=== PATIENT | female | born 1945 | race Two or more races ===

== ENCOUNTER 2021-07-09 12:26 | Outpatient (REF) | payer MEDICARE, SELFPAY | END 2021-07-09 12:27 | disposition home or self-care (01) | LOC: HO.LAB 12:26 | PROVIDERS: PCP Internal Medicine; Visit Provider Internal Medicine | DX: Z20.822 Contact with and (suspected) exposure to COVID-19 (principal) | CPT/HCPCS: C9803; U0003; U0005 ==

== ENCOUNTER 2021-10-15 09:31 | Emergency (ER) | payer MEDICARE, SELFPAY ==
--- NOTE | ~2021-10-15 | CT_ITS ---
EXAMINATION: CT ABDOMEN AND PELVIS WITHOUT CONTRAST CLINICAL INFORMATION: Lower abdominal pain and rectal bleeding COMPARISON: None TECHNIQUE: Multidetector volumetric imaging was performed from the superior aspect of the liver through the pubic symphysis. Sagittal and coronal reformatted images were obtained on the technologist's workstation. This CT examination was performed using dose optimization techniques as appropriate, variously including the following: *Automated exposure control *Adjustment of mA and/or kV according to patient size (this includes techniques or standardized protocols for targeted exams where dose is matched to indication/reason for exam; i.e. extremities or head) *Use of iterative reconstruction technique DLP: 653 mGy-cm FINDINGS: LUNG BASES: The visualized lung bases are unremarkable. LIVER, GALLBLADDER, AND BILIARY TREE: The liver is normal in size, shape, and attenuation. No focal hepatic lesion or biliary ductal dilatation is present. The gallbladder is unremarkable with no evidence of radiopaque gallstones, gallbladder wall thickening, or obvious pericholecystic inflammatory changes. PANCREAS: Unremarkable. SPLEEN: Unremarkable. ADRENAL GLANDS: Unremarkable. KIDNEYS AND URETERS: The kidneys are normal in size, shape, and attenuation. No hydronephrosis, hydroureter, or calculi seen. No perinephric stranding. There is a 2.9 x 2.6 x 3.1 cm cyst midpole left kidney. No additional cyst seen. BLADDER: Unremarkable. GASTROINTESTINAL TRACT: There are scattered diverticula seen throughout the colon most prominent in the sigmoid colon with mild mural thickening and minimal fat stranding. The small bowel loops are normal caliber. Appendix is normal caliber.. ABDOMINAL WALL: There is a small umbilical hernia containing fat.. LYMPH NODES: Normal bilateral calf with 2 or lytic VASCULAR: Unremarkable. PELVIC VISCERA: Diffuse sigmoid diverticulosis with mild mural thickening with minimal fat stranding. No proximal bowel obstruction, abscess or free air. OSSEOUS STRUCTURES: There is vacuum disc phenomena at L3-L4 disc level. No lytic or sclerotic process seen. CT/CT abdomen pelvis wo con IMPRESSION: Sigmoid diverticulosis with likely early summer sigmoid colitis. No bowel obstruction, free air or collection seen. Fleischner guidelines were followed.
[2021-10-15 09:49] VITALS: BP 156/75; PULSE 88; RESP 16; TEMP 36.6; O2SAT 97; BMI 29.9
[2021-10-15 12:32] VITALS: BP 156/76; PULSE 74; RESP 14; TEMP 37.1; O2SAT 95
--- NOTE | 2021-10-15 13:15 | ED.GENADULT ---
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 Patient had a bowel movement this morning which loose stool with streaks of bright red blood, patient complained of some crampy pain in the lower abdomen which resolved now, patient otherwise has no other complaints, no fever, no chills, patient is not taking a blood thinner. Related Data Previous Rx's Medication Instructions Recorded ciprofloxacin HCl 500 mg tablet 500 mg PO BID #14 tab 10/15/21 (Cipro) metronidazole 500 mg tablet 500 mg PO BID 14 Days #28 tab 10/15/21 Allergies Allergy/AdvReac Type Severity Reaction Status Date / Time No Known Allergies Allergy Mild NONE Unverified 06/29/20 15:16 Review of Systems Review of Systems: All other systems are reviewed and are negative Constitutional: Reports as per HPI and Reports no additional constitutional complaints Eyes: Reports as per HPI and Reports no additional eye complaints Reports system reviewed and no additional complaints, except as documented Cardiovascular: Reports as per HPI and Reports no additional cardiovascular complaints Respiratory: Reports as per HPI and Reports no additional respiratory complaints Gastrointestinal: Reports as per HPI and Reports no additional gastrointestinal complaints Genitourinary: Reports no additional female genitourinary complaints Musculoskeletal: Reports no additional musculoskeletal complaints Skin/Breast: Reports system reviewed and no additional complaints, except as docu Psychiatric: Reports no additional psychiatric complaints Endocrine: Reports no additional endocrine complaints Hematologic/Lymphatic: Reports no additional hematologic/lymphatic complaints Allergic/Immunologic: Reports no additional allergic/immunologic complaints Reports system reviewed and no additional complaints, except as documented and Reports Abnormal speech present [facility] Past Medical History Medical History Hypertension Social History Social History Advance Directives: No Advance Directives Information Provided: No Physical Exam Vital Signs: Vital Signs: Last Vital Signs Temp 98.9 F 10/15/21 13:23 Pulse 75 10/15/21 13:23 Resp 16 10/15/21 13:23 BP 142/73 H 10/15/21 13:23 Pulse Ox 94 10/15/21 13:23 BMI result Body Mass Index 29.9 Vital signs have been reviewed as appeared to be correct. Blood pressure normal. Heart rate normal. Respiration rate normal. Temperature normal. Oxygen saturation normal. Appearance: Alert. Oriented X3. No acute distress. Head: Normal external exam. Normocephalic. Atraumatic. No Dewitt signs noted. No raccoon eyes noted Eyes: PERRLA. EOMI. Conjunctiva and sclera normal. Eyelids normal. ENT: TM's Normal. Pharynx normal. Uvula midline. Moist mucous membranes. No trismus noted. No drooling noted. No muffled voice noted. Neck: Normal inspection. Neck supple. FROM. No adenopathy. Thyroid Normal. No meningeal signs. No neck mass noted. CVS: Normal heart rate and rhythm. Heart sound normal. No murmurs noted. Pulses normal throughout. Respiratory: No respiratory distress. Painless inspiration. Breath sounds normal. No wheezes/rales/rhonchi noted. Chest nontender. No accessory muscle usage noted or decreased air movement noted. Abdomen: Soft and nontender. Bowel sounds normal in all 4 quadrants. No distention noted. No organomegaly noted. No visible injury noted. Back: No CVA tenderness. Full range of motion noted. Skin: Skin warm and dry. Normal skin color. Normal skin turgor. No rashes/lesions/lacerations noted. Extremities: No lower extremity edema. Extremities exhibit normal range of motion. Extremities nontender. Neuro: Oriented X 3. Cranial nerve exam: II-XII are grossly intact No motor deficit. No sensory deficit. Reflexes normal. Course Course Course Narrative: Assessment and plan. 76-year-old female came in for evaluation of 1 time of bloody stool, rectal exam in the emergency department showed no blood in the stool, stable H&H, stable vital signs. CT is questioning early sign of sigmoid colitis. As discussed with the patient will start the patient on Cipro/Flagyl, refer the patient to radial saw operator. Medical Decision Making Medical Records Medical records reviewed: Yes I reviewed the patient's medical records. Lab Data Lab results reviewed: Yes I reviewed the patient's lab results. Result diagrams: 10/15/21 13:16 10/15/21 13:16 Labs: Lab Results 10/15/21 10/15/21 10/15/21 Range/Units 13:16 13:16 13:16 WBC 8.5 (4.8-10.8) X10*3/uL RBC 3.62 L (4.20-5.50) X10*6/uL Hgb 11.5 L (12.0-16.0) g/dl Hct 34.7 L (37.0-47.0) % MCV 95.9 (80.0-98.0) fL MCH 31.8 (27.0-33.0) pg MCHC 33.1 (31.0-35.0) g/dl RDW 13.2 (11.0-16.0) % Plt Count 302 (160-400) X10*3/uL MPV 9.3 L (9.4-12.3) fL Immature Gran % (Auto) 0.1 (0.0-0.4) % Neut % (Auto) 55.8 (45-73) % Lymph % (Auto) 32.0 (20-40) % Williamson % (Auto) 6.9 (2-11) % Eos % (Auto) 4.7 H (0-4) % Baso % (Auto) 0.5 (0-2) % Lymph # (Auto) 2.7 (1.2-4.9) X10*3/uL Williamson # (Auto) 0.6 (0.1-1.2) X10*3/uL Eos # (Auto) 0.4 (0.0-0.4) X10*3/uL Baso # (Auto) 0.0 (0.0-0.2) X10*3/uL Abs Immat Gran (auto) 0.01 (0.00-0.03) X10*3/uL Absolute Neuts (auto) 4.7 (2.0-8.3) x10*3/uL Absolute Nucleated RBC 0.000 (0.0-0.012) X10*3/uL Nucleated RBC % (auto) 0.0 (0.0-0.2) /100WBC Sodium 142 (135-145) mmol/L Potassium 3.8 (3.3-5.1) mmol/L Chloride 105 (96-108) mmol/L Carbon Dioxide 31 H (22-29) mmol/L Anion Gap 10 L (12-20) BUN 8 L (9-16) mg/dL Creatinine 0.85 (0.5-1.4) mg/dL Estim Creat Clear Calc 53.1 Estimated GFR > 60 Random Glucose 104 (60-115) mg/dL Calcium 9.3 (8.4-10.2) mg/dL Total Bilirubin 0.6 (0.0-1.0) mg/dL Direct Bilirubin 0.2 (0.0-0.5) mg/dL AST 11 (5-31) U/L ALT 12 (0-31) U/L Alkaline Phosphatase 70 (39-117) U/L Troponin I High Sens < 3.5 (<3.5-17.0) ng/L Total Protein 6.9 (6.5-8.0) g/dL Albumin 4.0 (3.5-5.0) g/dL Lipase 7 L (8-78) U/L Urine Color Urine Appearance Urine pH (5.0-8.0) Ur Specific [place] (1.005-1.025) Urine Protein (NEG-TRACE) MG/DL Urine Glucose (UA) (NEG) MG/DL Urine Ketones (NEG) MG/DL Urine Blood (NEG) Urine Nitrite (NEG) Ur Leukocyte Esterase (NEG) Urine RBC (0) /HPF Urine WBC (0-4) /HPF Ur Squamous Epith Cells /LPF Urine Bacteria /LPF Urine Mucus /LPF Stool Occult Blood (NEGATIVE) 10/15/21 10/15/21 Range/Units 13:17 13:19 WBC (4.8-10.8) X10*3/uL RBC (4.20-5.50) X10*6/uL Hgb (12.0-16.0) g/dl Hct (37.0-47.0) % MCV (80.0-98.0) fL MCH (27.0-33.0) pg MCHC (31.0-35.0) g/dl RDW (11.0-16.0) % Plt Count (160-400) X10*3/uL MPV (9.4-12.3) fL Immature Gran % (Auto) (0.0-0.4) % Neut % (Auto) (45-73) % Lymph % (Auto) (20-40) % Williamson % (Auto) (2-11) % Eos % (Auto) (0-4) % Baso % (Auto) (0-2) % Lymph # (Auto) (1.2-4.9) X10*3/uL Williamson # (Auto) (0.1-1.2) X10*3/uL Eos # (Auto) (0.0-0.4) X10*3/uL Baso # (Auto) (0.0-0.2) X10*3/uL Abs Immat Gran (auto) (0.00-0.03) X10*3/uL Absolute Neuts (auto) (2.0-8.3) x10*3/uL Absolute Nucleated RBC (0.0-0.012) X10*3/uL Nucleated RBC % (auto) (0.0-0.2) /100WBC Sodium (135-145) mmol/L Potassium (3.3-5.1) mmol/L Chloride (96-108) mmol/L Carbon Dioxide (22-29) mmol/L Anion Gap (12-20) BUN (9-16) mg/dL Creatinine (0.5-1.4) mg/dL Estim Creat Clear Calc Estimated GFR Random Glucose (60-115) mg/dL Calcium (8.4-10.2) mg/dL Total Bilirubin (0.0-1.0) mg/dL Direct Bilirubin (0.0-0.5) mg/dL AST (5-31) U/L ALT (0-31) U/L Alkaline Phosphatase (39-117) U/L Troponin I High Sens (<3.5-17.0) ng/L Total Protein (6.5-8.0) g/dL Albumin (3.5-5.0) g/dL Lipase (8-78) U/L Urine Color YELLOW Urine Appearance CLEAR Urine pH 5.5 (5.0-8.0) Ur Specific [place] 1.020 (1.005-1.025) Urine Protein NEG (NEG-TRACE) MG/DL Urine Glucose (UA) NEG (NEG) MG/DL Urine Ketones 5 (NEG) MG/DL Urine Blood TRACE (NEG) Urine Nitrite NEG (NEG) Ur Leukocyte Esterase NEG (NEG) Urine RBC 1-4 (0) /HPF Urine WBC 0-2 (0-4) /HPF Ur Squamous Epith Cells 1+ /LPF Urine Bacteria TRACE /LPF Urine Mucus 1+ /LPF Stool Occult Blood NEGATIVE (NEGATIVE) Imaging Data CT scan - abdomen: Attestation: I personally reviewed and interpreted this imaging study as follows: Radiologist's impression: Sigmoid diverticulosis with likely early summer sigmoid colitis. No bowel obstruction, free air or collection seen.? ? Discharge Plan Discharge Clinical Impression: Colitis Patient Disposition: Home, Self-Care Instructions: Colitis (ED) Prescriptions: New ciprofloxacin HCl [Cipro] 500 mg tablet 500 mg PO BID Qty: 14 RF: 0 metronidazole 500 mg tablet 500 mg PO BID 14 Days Qty: 28 RF: 0 Referrals: Kalin Mahoney MD [Primary Care Provider] - 2 days German Lilly MD [Physician] - 2 days
[2021-10-15 13:23] VITALS: BP 142/73; PULSE 75; RESP 16; TEMP 37.2; O2SAT 94
[2021-10-15 13:23] LABS: MANUAL DIFF FLAG NO
[2021-10-15 13:28] LABS: Basophils Percent Auto 0.5 % (0-2); Eosinophils Absolute Auto 0.4 X10*3/uL (0.0-0.4); Eosinophils Percent Auto 4.7 % (0-4); Hematocrit 34.7 % (37.0-47.0); Hemoglobin 11.5 g/dl (12.0-16.0); Imm Gran Abs Auto 0.01 X10*3/uL (0.00-0.03); Imm Gran Pct Auto 0.1 % (0.0-0.4); Lymphocytes Absolute Auto 2.7 X10*3/uL (1.2-4.9); Mean Corpuscular HGB Conc 33.1 g/dl (31.0-35.0); Mean Corpuscular Hemoglobin 31.8 pg (27.0-33.0); Mean Corpuscular Volume 95.9 fL (80.0-98.0); Mean Platelet Volume 9.3 fL (9.4-12.3); Monocytes Absolute Auto 0.6 X10*3/uL (0.1-1.2); Monocytes Percent Auto 6.9 % (2-11); Neutrophils Absolute Auto 4.7 x10*3/uL (2.0-8.3); Neutrophils Percent Auto 55.8 % (45-73); Platelet Count 302 X10*3/uL (160-400); Red Blood Count 3.62 X10*6/uL (4.20-5.50); Red Cell Distribution Width 13.2 % (11.0-16.0); White Blood Count 8.5 X10*3/uL (4.8-10.8)
[2021-10-15 13:29] LABS: OBS Int Ctl Valid YES; OBS1 NEGATIVE (NEGATIVE)
[2021-10-15 13:29] LABS: Appearance Urine CLEAR; Color Urine YELLOW; Glucose Urine UA NEG (NEG); Leukocyte Esterase Urine NEG (NEG); Nitrite Urine NEG (NEG); PH 5.5 (5.0-8.0); UACC Culture Trigger NO; Urine Blood TRACE (NEG); Urine Ketones 5 MG/DL (NEG); Urine Protein NEG (NEG-TRACE)
[2021-10-15 13:39] LABS: Anion Gap 10 (12-20); Blood Urea Nitrogen 8 mg/dL (9-16); Carbon Dioxide 31 mmol/L (22-29); Chloride 105 mmol/L (96-108); Creatinine Clr Calc Pharmacy 53.1; Estimated Glomerular Filt Rate > 60; Potassium 3.8 mmol/L (3.3-5.1); Sodium 142 mmol/L (135-145)
[2021-10-15 13:40] LABS: Alanine Aminotransferase 12 U/L (0-31); Alkaline Phosphatase 70 U/L (39-117); Aspartate Amino Transferase 11 U/L (5-31); Bilirubin Direct 0.2 mg/dL (0.0-0.5); Bilirubin Total 0.6 mg/dL (0.0-1.0); Calcium 9.3 mg/dL (8.4-10.2); Glucose Random 104 mg/dL (60-115); Lipase 7 U/L (8-78); Total Protein 6.9 g/dL (6.5-8.0)
[2021-10-15 13:43] LABS: Bacteria Urine TRACE /LPF; Mucus Urine 1+ /LPF; Squamous Epithelial Cell Urine 1+ /LPF; WBC Urine 0-2 /HPF (0-4)
[2021-10-15 13:45] LABS: Troponin-I High Sensitivity < 3.5 ng/L (<3.5-17.0)
== END 2021-10-15 14:30 | disposition home or self-care (01) ==
PROVIDERS: Emergency Provider Emergency Medicine; PCP Internal Medicine
DX: K52.89 Other specified noninfective gastroenteritis and colitis (principal); K57.30 Diverticulosis of large intestine without perforation or abscess without bleeding
CPT/HCPCS: 36415; 74176; 80048; 80076; 81001; 82272; 83690; 84484; 85025; 99284

== ENCOUNTER 2022-05-30 14:10 | Emergency (ER) | payer MEDICARE, SELFPAY ==
--- NOTE | ~2022-05-30 | XR_ITS ---
EXAMINATION: XR CHEST CLINICAL INFORMATION: Cough COMPARISON: 09/11/2016 TECHNIQUE: Frontal view of the chest was obtained. FINDINGS: No evidence for an infiltrate. Lung granados are grossly clear. There is no failure or effusion. Tortuous versus ectatic arch and descending aorta. The cardiac silhouette is comparable to previous. XR/XR chest 1V IMPRESSION: No acute finding.
[2022-05-30 15:23] VITALS: BP 153/76; PULSE 63; RESP 18; TEMP 36.3; O2SAT 96; BMI 29.2
[2022-05-30 15:52] LABS: COVID-19 Test Positive (Negative); IDNOW Serial# 16C4AD1C
== END 2022-05-30 17:41 | disposition left against medical advice (07) ==
PROVIDERS: Emergency Provider Emergency Medicine
DX: U07.1 COVID-19 (principal)
CPT/HCPCS: 71045; 87635; 99281; 99283

== ENCOUNTER 2023-02-21 16:10 | Emergency (ER) | payer OTHER, SELFPAY ==
[2023-02-21 16:22] VITALS: BP 163/83; PULSE 77; RESP 18; TEMP 36.5; O2SAT 96; BMI 28.5
--- NOTE | 2023-02-21 16:22 | ED.EYEPROB ---
HPI - Eye Problem General Chief complaint: Eye Problems <SAMY Delong - Last Filed: 02/21/23 16:28> Stated complaint: right eye injury <SAMY Delong - Last Filed: 02/21/23 16:28> Time Seen by Provider: 02/21/23 18:53 <SAMY Delong - Last Filed: 02/21/23 16:28> Source: patient <Shamir Romeo MD - Last Filed: 02/21/23 19:38> Mode of arrival: ambulatory <Shamir Romeo MD - Last Filed: 02/21/23 19:38> Limitations: no limitations <Shamir Romeo MD - Last Filed: 02/21/23 19:38> History of Present Illness HPI Narrative: Patient was coughing for last 2 days today noticed redness of the right eye after coughing episodes cough is mostly dry with occasional mucopurulent expectoration no nasal congestion no fever no chills <Shamir Romeo MD - Last Filed: 02/21/23 19:38> Related Data Home medications: Previous Rx's Medication Instructions Recorded benzonatate 200 mg capsule 200 mg PO TID PRN cough #20 caps 02/21/23 <SAMY Delong - Last Filed: 02/21/23 16:28> Allergies/adverse reactions: Allergies Allergy/AdvReac Type Severity Reaction Status Date / Time No Known Allergies Allergy Verified 02/21/23 16:26 <SAMY Delong - Last Filed: 02/21/23 16:28> Review of Systems Review of Systems: Yes all other systems are reviewed and are negative <Shamir Romeo MD - Last Filed: 02/21/23 19:38> [facility] Social History Social History: Social History Advance Directives: No Advance Directives Information Provided: No <SAMY Delong - Last Filed: 02/21/23 16:28> Physical Exam Vital Signs: Vital Signs: Last Vital Signs Temp 97.7 F 02/21/23 16:22 Pulse 60 02/21/23 18:35 Resp 14 02/21/23 18:35 BP 150/68 H 02/21/23 18:35 Pulse Ox 97 02/21/23 18:35 O2 Del Method Room Air 02/21/23 18:35 BMI result Body Mass Index 28.5 <SAMY Delong - Last Filed: 02/21/23 16:28> Vital Signs: Last Vital Signs Temp 97.7 F 02/21/23 16:22 Pulse 60 02/21/23 18:35 Resp 14 02/21/23 18:35 BP 150/68 H 02/21/23 18:35 Pulse Ox 97 02/21/23 18:35 O2 Del Method Room Air 02/21/23 18:35 BMI result Body Mass Index 28.5 <Shamir Romeo MD - Last Filed: 02/21/23 19:38> Const: General: comfortable and no acute distress <Shamir Romeo MD - Last Filed: 02/21/23 19:38> HEENT: Face and sinus: Yes normal facial exam <Shamir Romeo MD - Last Filed: 02/21/23 19:38> Mouth: Normal oral and palatal mucosa present <Shamir Romeo MD - Last Filed: 02/21/23 19:38> Throat: Yes posterior oropharynx normal <Shamir Romeo MD - Last Filed: 02/21/23 19:38> Eyes: Conjunctivae: other <Shamir Romeo MD - Last Filed: 02/21/23 19:38> Sclerae: scleral abnormal (Right subconjunctival hemorrhage) <Shamir Romeo MD - Last Filed: 02/21/23 19:38> Corneas: corneas normal <Shamir Romeo MD - Last Filed: 02/21/23 19:38> Pupils: Equal, round and reactive pupils present <Shamir Romeo MD - Last Filed: 02/21/23 19:38> EOM: EOMs intact bilaterally <Shamir Romeo MD - Last Filed: 02/21/23 19:38> Eyes/upper lids images: 1. Subclinical hemorrhage right eye <SAMY Delong - Last Filed: 02/21/23 16:28> Eyes/upper lids images: 1. Subclinical hemorrhage right eye <Shamir Romeo MD - Last Filed: 02/21/23 19:38> Resp: Effort & Inspection: normal respiratory effort <Shamir Romeo MD - Last Filed: 02/21/23 19:38> Auscultation: clear to auscultation bilaterally <Shamir Romeo MD - Last Filed: 02/21/23 19:38> Cardio: Palpation: normal PMI <Shamir Romeo MD - Last Filed: 02/21/23 19:38> Rate: regular rate <Shamir Romeo MD - Last Filed: 02/21/23 19:38> Neuro: Cranial nerves: Yes Equal, round and reactive pupils present <Shamir Romeo MD - Last Filed: 02/21/23 19:38> Course Course Course Narrative: RME: 77-year-old female w/PMHx cataracts, HTN, HLD, c/o left eye erythema and pain since this morning with slight clear drainage. Also reports foreign body sensation/discomfort. patient admits to wearing glasses, denies wearing contacts. Denies injury/trauma or fall, vision change/loss, nausea/vomiting + right eye with subconjunctival hemorrhage noted. No evidence of globe rupture. EOMI intact without entrapment. Visual acuity, tetracaine, fluorescein ordered Full HPI, ROS and PE to be performed by primary ED provider. <SAMY Delong - Last Filed: 02/21/23 16:28> Discharge Plan Discharge Clinical Impression: Subconjunctival hemorrhage <SAMY Delong Last Filed: 02/21/23 16:28> Patient Disposition: Home, Self-Care <SAMY Delong Last Filed: 02/21/23 16:28> Instructions: Subconjunctival Hemorrhage (ED) <SAMY Delong Last Filed: 02/21/23 16:28> Additional Instructions: Cough drops as advised for cough subconjunctival hemorrhage on the right side will dissolve of its own in 10-14 days <SAMY Delong Last Filed: 02/21/23 16:28> Prescriptions: New benzonatate 200 mg capsule 200 mg PO TID PRN (Reason: cough) Qty: 20 0RF <SAMY Delong - Last Filed: 02/21/23 16:28>
[2023-02-21 18:35] VITALS: BP 150/68; PULSE 60; RESP 14; O2SAT 97
[2023-02-21] MEDS: Benzonatate 100 MG CAPSULE 200 MG PO (19:36)
[2023-02-21] MEDS: Tetracaine HCl/PF 0.5% Oph Sol 4 ML DROPS 1 DROP EYE-RIGHT (19:37)
[2023-02-21] MEDS: Fluorescein Sodium STRIP 1 STRIP EYE-RIGHT (19:37)
--- NOTE | 2023-02-21 19:38 | PC.NURSE ---
This RN medicated and discharge pt for RN Tacho, Reviewed discharge instructions with pt, pt verbalized understanding.
== END 2023-02-21 19:40 | disposition home or self-care (01) ==
PROVIDERS: Emergency Provider Internal Medicine; PCP Family Medicine
DX: H11.31 Conjunctival hemorrhage, right eye (principal)
CPT/HCPCS: 99283

== ENCOUNTER 2024-01-02 13:16 | Emergency (ER) | payer MEDICARE, SELFPAY ==
--- NOTE | ~2024-01-02 | US_ITS ---
EXAMINATION: US ABDOMEN LIMITED CLINICAL INFORMATION: Right upper quadrant pain. COMPARISON: None available. TECHNIQUE: Real-time imaging of the right upper quadrant abdominal viscera. FINDINGS: PANCREAS: The visualized portion of the pancreas head and body are normal, portion of the pancreatic body and tail, not visualized are obscured by bowel gas. LIVER: Normal. The liver is normal in size. The liver contour is normal. Parenchymal echogenicity is normal. No focal hepatic lesion. There is no intrahepatic biliary duct dilatation seen. GALLBLADDER: There are gallstones. Tenderness also reported pressing on the gallbladder, no other signs to suggest cholecystitis, no gallbladder wall thickening or pericholecystic fluid collection. COMMON BILE DUCT: Normal in caliber measuring 0.4 cm in diameter. RIGHT KIDNEY: Normal. No hydronephrosis. No renal calculi or focal parenchymal lesions. The kidney measures 9.3 cm in maximum dimension. FREE FLUID: None. US/US abdomen limited IMPRESSION: There are gallstones, tenderness reported pressing on the gallbladder by the technologist, there are no other signs to suggest acute cholecystitis, specifically no gallbladder wall thickening or pericholecystic fluid also the common bile duct is normal in diameter 4 mm. Please correlate clinically. If there is high index of suspicion for acute cholecystitis, would recommend correlation with follow-up HIDA scan and/or surgical evaluation.
[2024-01-02 14:12] VITALS: BP 130/88; PULSE 62; RESP 14; TEMP 36.4; O2SAT 99; BMI 28.3
--- NOTE | 2024-01-02 14:18 | ED_ITS ---
HPI - General Adult General Chief complaint: General Medical Stated complaint: ? Abscess on Head Stomach Pain Time Seen by Provider: 01/02/24 15:17 Source: patient and RN notes reviewed Mode of arrival: ambulatory Limitations: no limitations History of Present Illness HPI narrative: This is a 13-[id number]-female, with a past medical history of hypertension, presenting to the emergency department with a complaint of burning sensation in his esophagus for the last year as well as abscess on the back of her head.complaints of burning esophageal sensation for the last year. She states that she currently is not having the symptoms. Denies any chest pain or shortness of breath. She states that she finds her symptoms worsening after eating greasy food and at night. She is previously on Prilosec which she has not taken in quite some time. She is also reporting a lump on the back of her head which has been present for the last 2 days. No recent trauma or injury. She also is endorsing burning sensation in her bilateral eyes for the last month. Denies any vision changes. She states that she is traveling to [place] and was hoping to have some of her medical problems assess prior to her departure. She denies any fevers, chills, headaches, dizziness, chest pain, shortness of breath, abdominal pain, nausea, vomiting or diarrhea. No other complaints or concerns at this time. MD complaint: GERD, bilateral eye itchiness, head lump Onset (ago): month(s) Radiation: non-radiation Quality: burning Relieving factors: none Exacerbating factors: none Associated symptoms: denies other symptoms Treatments prior to arrival: none Related Data Previous Rx's Medication Instructions Recorded ciprofloxacin HCl 500 mg tablet 500 mg PO BID #14 tabs 10/15/21 (Cipro) metronidazole 500 mg tablet 500 mg PO BID 14 days #28 tabs 10/15/21 aluminum-mag hydroxide-simethicone 5 ml PO 5XD PRN dyspepsia #200 mL 01/02/24 200 mg-200 mg-20 mg/5 mL oral susp (Maalox Advanced) omeprazole magnesium 20 mg 20 mg PO DAILY #30 tabs 01/02/24 tablet,delayed release (Prilosec OTC) Allergies Allergy/AdvReac Type Severity Reaction Status Date / Time No Known Allergies Allergy Mild NONE Verified 05/30/22 15:23 Review of Systems 2 Review of Systems: Yes all other systems are reviewed and are negative Constitutional: Constitutional: Reports as per [facility] Past Medical History Medical History Hypertension Social History Social History Alcohol intake: never Patient Tobacco Use Status: Never used Tobacco Physical Exam ED Vital Signs: Vital Signs - 24 hr 01/02/24 14:12 Temperature 97.6 F Pulse Rate 62 Respiratory Rate 14 Blood Pressure 130/88 Pulse Oximetry 99 Oxygen Delivery Method Room Air BMI result Body Mass Index 28.3 Const General: cooperative, comfortable and no acute distress Orientation/consciousness: patient oriented x3 Limitations: no limitations HENMT Other: Right occiput with tenderness palpation, no palpable mass, deformity, or erythema. No drainage. No overlying skin changes. Head: Yes normal to inspection, Yes normocephalic and Yes atraumatic Ears: hearing grossly normal bilaterally General nose exam: Normal external nose present Face and sinus: Yes normal facial exam Mouth: Normal oral and palatal mucosa present, oropharynx normal and moist mucous membranes Throat: Yes posterior oropharynx normal Eyes Other: Bilateral conjunctiva is noninjected. Pupils equal and reactive. No periorbital swelling, or erythema noted. No exophthalmos General: appearance normal, both eyes and all related structures Eyelids: Yes eyelids normal Conjunctivae: conjunctivae normal Sclerae: sclerae normal Pupils: Equal, round and reactive pupils present EOM: EOMs intact bilaterally Neck Neck: Yes normal visual inspection, Yes full ROM and Yes no lymphadenopathy Lymphatic: no lymphadenopathy noted Chest Chest palpation & inspection: normal inspection of the chest Resp Effort & Inspection: normal respiratory effort and able to speak in complete sentences Auscultation: clear to auscultation bilaterally, no crackles, no rales, no rhonchi and no wheezes Cardio Rate: regular rate Rhythm: regular rhythm Heart sounds: S1 normal heart sound present and S2 normal heart sound present GI Other: Slight tenderness palpation in the right upper quadrant. Inspection: Yes normal to inspection Skin General skin exam: no rashes or lesions noted Trauma: no lacerations or abrasions Wounds: no wounds Neuro General: patient oriented x3 and moves all extremities Cranial nerves: Yes Equal, round and reactive pupils present Extrem General: Yes normal to inspection Right upper extremity: normal to inspection Left upper extremity: normal to inspection Right lower extremity: normal to inspection Left lower extremity: normal to inspection Course Reevaluation(s) Reevaluation #1: Ultrasound returns revealing gallstones, as well as tenderness while pressing on gallbladder by the technologist, there are no other signs to suggest acute cholecystitis. No gallbladder wall thickening or pericholecystic fluid. Common bile duct is normal in diameter 4 mm. Discussed findings with pt, given surgical referral. At this time she does not have evidence of cholecystitis therefore urgent HIDA scan not warrated at this time. Pt discharged on omeprazole, maalox and given return precautions, She understands and agrees with plan. Time: 18:08 Medical Decision Making Medical Decision Making MDM Narrative: This is a 78-year-old female presenting to the emergency department with complaints of burning esophageal sensation for the last year. She states that she currently is not having the symptoms. Denies any chest pain or shortness of breath. She states that she finds her symptoms worsening after eating greasy food and at night. She is previously on Prilosec which she has not taken in quite some time. She is also reporting a lump on the back of her head which has been present for the last 2 days. No recent trauma or injury. She states that she is traveling to [place] and wanted some of her symptoms to be evaluated prior to her departure. She is currently asymptomatic. Plan: Labs, ultrasound right upper quadrant. Differential Diagnosis Differential Diagnoses: The differential diagnosis associated with the presentation includes Gastritis, GERD, cholelithiasis, cholecystitis, lymphangitis, cellulitis Admission/Observation Consideration of admission/observation: Escalation of care including admission/observation considered Escalation of care including admission/observation considered however given workup today not warranted at this time. Lab Data MDM Lab Attestation statement: I reviewed the patient's lab results. No leukocytosis, no evidence of MARLIN,LFTs wnl 01/02/24 16:00 01/02/24 16:00 Labs: Lab Results 01/02/24 Range/Units 16:00 WBC 6.1 (4.8-10.8) X10*3/uL RBC 3.76 L (4.20-5.50) X10*6/uL Hgb 11.8 L (12.0-16.0) g/dl Hct 35.5 L (37.0-47.0) % MCV 94.4 (80.0-98.0) fL MCH 31.4 (27.0-33.0) pg MCHC 33.2 (31.0-35.0) g/dl RDW 13.2 (11.0-16.0) % Plt Count 292 (160-400) X10*3/uL MPV 9.5 (9.4-12.3) fL Immature Gran % (Auto) 0.2 (0.0-0.4) % Neut % (Auto) 45.1 (45-73) % Lymph % (Auto) 40.4 H (20-40) % [place] % (Auto) 6.8 (2-11) % Eos % (Auto) 6.7 H (0-4) % Baso % (Auto) 0.8 (0-2) % Lymph # (Auto) 2.5 (1.2-4.9) X10*3/uL [place] # (Auto) 0.4 (0.1-1.2) X10*3/uL Eos # (Auto) 0.4 (0.0-0.4) X10*3/uL Baso # (Auto) 0.1 (0.0-0.2) X10*3/uL Abs Immat Gran (auto) 0.01 (0.00-0.03) X10*3/uL Absolute Neuts (auto) 2.8 (2.0-8.3) x10*3/uL Absolute Nucleated RBC 0.000 (0.0-0.012) X10*3/uL Nucleated RBC % (auto) 0.0 (0.0-0.2) /100WBC Sodium 139 (135-145) mmol/L Potassium 4.1 (3.3-5.1) mmol/L Chloride 105 (96-108) mmol/L Carbon Dioxide 28 (22-29) mmol/L Anion Gap 10 L (12-20) BUN 9 (9-16) mg/dL Creatinine 0.85 (0.5-1.4) mg/dL Estim Creat Clear Calc 52.0 Estimated GFR > 60 Random Glucose 100 (60-115) mg/dL Calcium 9.2 (8.4-10.2) mg/dL Total Bilirubin 0.5 (0.0-1.0) mg/dL AST 14 (5-31) U/L ALT 15 (0-31) U/L Alkaline Phosphatase 67 (39-117) U/L Total Protein 7.2 (6.5-8.0) g/dL Albumin 4.1 (3.5-5.0) g/dL Lipase 15 (8-78) U/L Radiology Impression Discussion of test interpretation with radiology: I have reviewed the radiologist's reading. Radiologist Impression: [address] [address] Ultrasound Report Signed Patient: Brianna Pathak MR#: [id number] : 1945 Acct:[id number] Age/Sex: 78 / F ADM Date: 01/02/24 Loc: .ED Attending Dr: Ordering Physician: Mirta Martinez Date of Service: 01/02/24 Procedure(s): US abdomen limited Accession Number(s): [id number] cc: Mirta Martinez; Physician,Unknown ~ EXAMINATION: US ABDOMEN LIMITED CLINICAL INFORMATION: Right upper quadrant pain. COMPARISON: None available. TECHNIQUE: Real-time imaging of the right upper quadrant abdominal viscera. FINDINGS: PANCREAS: The visualized portion of the pancreas head and body are normal, portion of the pancreatic body and tail, not visualized are obscured by bowel gas. LIVER: Normal. The liver is normal in size. The liver contour is normal. Parenchymal echogenicity is normal. No focal hepatic lesion. There is no intrahepatic biliary duct dilatation seen. GALLBLADDER: There are gallstones. Tenderness also reported pressing on the gallbladder, no other signs to suggest cholecystitis, no gallbladder wall thickening or pericholecystic fluid collection. COMMON BILE DUCT: Normal in caliber measuring 0.4 cm in diameter. RIGHT KIDNEY: Normal. No hydronephrosis. No renal calculi or focal parenchymal lesions. The kidney measures 9.3 cm in maximum dimension. FREE FLUID: None. US/US abdomen limited IMPRESSION: There are gallstones, tenderness reported pressing on the gallbladder by the technologist, there are no other signs to suggest acute cholecystitis, specifically no gallbladder wall thickening or pericholecystic fluid also the common bile duct is normal in diameter 4 mm. Please correlate clinically. If there is high index of suspicion for acute cholecystitis, would recommend correlation with follow-up HIDA scan and/or surgical evaluation. External Record Review External record reviewed: Inpatient record, Office record, Outpatient record, Prior outpatient labs, Prior outpatient radiology, Primary care record and Outside ED record Discharge Plan Discharge Clinical Impression: Cholelithiasis, Chronic GERD, Seasonal allergies Patient Disposition: Home, Self-Care Instructions: Gallstones (ED), Low Fat Diet (ED), Gastroesophageal Reflux Disease (ED), Indigestion (ED) Additional Instructions: You were seen in the emergency department due to multiple complaints. Your ultrasound revealed gallstones. There has no evidence of infection at this time. Stick to a low-fat diet, avoid spicy or fried foods. Avoid red meats. If you develop severe right-sided abdominal pain, please seek emergent care. Also recommending he follow-up with a surgeon outpatient for further recommendations as well as removal of your gallbladder if needed. You also have acid reflux, please take prescribed omeprazole as directed. Take this before breakfast on an empty stomach. Wait 30 minutes until you eat. You also have bilateral eye irritation which can be attributed to seasonal allergies. Please take prescribed medication as directed. You may use lubricating eyedrops as well to help with your symptoms. If any new or worsening symptoms occur including but not limited to chest pain, shortness of breath, abdominal pain, nausea, vomiting or diarrhea, please return for re-evaluation. Prescriptions: New omeprazole magnesium [Prilosec OTC] 20 mg tablet,delayed release (DR/EC) 20 mg PO DAILY Qty: 30 0RF alum-mag hydroxide-simeth [Maalox Advanced] 200-200-20 mg/5 mL suspension 5 ml PO 5XD PRN (Reason: dyspepsia) Qty: 200 0RF Rx Instructions: administer between meals and at bedtime No Action ciprofloxacin HCl [Cipro] 500 mg tablet 500 mg PO BID Qty: 14 0RF metronidazole 500 mg tablet 500 mg PO BID 14 Days Qty: 28 0RF Referrals: [facility] General Surgeons [Provider Group] Interventions: ED Discharge Assessment Last Done: 01/02/24 19:08 Discharge Date/Time: 01/02/24 19:10 Print Language: Bengali
[2024-01-02 16:06] LABS: MANUAL DIFF FLAG NO
[2024-01-02 16:12] LABS: Basophils Absolute Auto 0.1 X10*3/uL (0.0-0.2); Basophils Percent Auto 0.8 % (0-2); Eosinophils Absolute Auto 0.4 X10*3/uL (0.0-0.4); Eosinophils Percent Auto 6.7 % (0-4); Hematocrit 35.5 % (37.0-47.0); Hemoglobin 11.8 g/dl (12.0-16.0); Imm Gran Abs Auto 0.01 X10*3/uL (0.00-0.03); Imm Gran Pct Auto 0.2 % (0.0-0.4); Lymphocytes Absolute Auto 2.5 X10*3/uL (1.2-4.9); Lymphocytes Percent Auto 40.4 % (20-40); Mean Corpuscular HGB Conc 33.2 g/dl (31.0-35.0); Mean Corpuscular Hemoglobin 31.4 pg (27.0-33.0); Mean Corpuscular Volume 94.4 fL (80.0-98.0); Mean Platelet Volume 9.5 fL (9.4-12.3); Monocytes Absolute Auto 0.4 X10*3/uL (0.1-1.2); Monocytes Percent Auto 6.8 % (2-11); Neutrophils Absolute Auto 2.8 x10*3/uL (2.0-8.3); Neutrophils Percent Auto 45.1 % (45-73); Platelet Count 292 X10*3/uL (160-400); Red Blood Count 3.76 X10*6/uL (4.20-5.50); Red Cell Distribution Width 13.2 % (11.0-16.0); White Blood Count 6.1 X10*3/uL (4.8-10.8)
[2024-01-02 16:22] LABS: Alanine Aminotransferase 15 U/L (0-31); Albumin Level 4.1 g/dL (3.5-5.0); Alkaline Phosphatase 67 U/L (39-117); Anion Gap 10 (12-20); Aspartate Amino Transferase 14 U/L (5-31); Bilirubin Total 0.5 mg/dL (0.0-1.0); Blood Urea Nitrogen 9 mg/dL (9-16); Calcium 9.2 mg/dL (8.4-10.2); Carbon Dioxide 28 mmol/L (22-29); Chloride 105 mmol/L (96-108); Estimated Glomerular Filt Rate > 60; Glucose Random 100 mg/dL (60-115); Lipase 15 U/L (8-78); Potassium 4.1 mmol/L (3.3-5.1); Sodium 139 mmol/L (135-145); Total Protein 7.2 g/dL (6.5-8.0)
[2024-01-02 18:21] VITALS: BP 182/86; PULSE 70; RESP 20; TEMP 36.5; O2SAT 96
[2024-01-02 19:08] VITALS: BP 158/87; PULSE 65; RESP 18; TEMP 36.8; O2SAT 99
== END 2024-01-02 19:10 | disposition home or self-care (01) ==
PROVIDERS: Physician Assistant Medical; Emergency Provider Emergency Medicine
DX: K80.20 Calculus of gallbladder without cholecystitis without obstruction (principal); K21.9 Gastro-esophageal reflux disease without esophagitis; J30.2 Other seasonal allergic rhinitis; I10 Essential (primary) hypertension
CPT/HCPCS: 36415; 76705; 80053; 83690; 85025; 99283; 99284

== ENCOUNTER 2024-03-01 13:22 | Outpatient (AMB) | payer MEDICARE, SELFPAY ==
--- NOTE | 2024-03-01 13:23 | MHC.OFFVIS ---
Vital Signs 03/01/24 13:30 Height 5 ft 3 in Weight 157 lb BMI 27.8 BP 167/79 H Blood Pressure Location Rt brachial Position Sitting Pulse 59 Intake Visit Reasons: gallstones Intake Note: This patient presents for [facility] emergency department follow-up for gallstones. Patient c/o; reports no nausea or vomiting, reports loose stools. 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 She apparently went to the ER last December, because of what was described as ?burning pain? in her esophagus. She had an abdominal ultrasound done showing gallstones without cholecystitis. She denies any history of right upper quadrant pain. She denies any other GI symptoms. She has good oral intake. Aside from hypertension and arthritis, she says she seems to be in good health. [facility] Medical History (Updated 03/01/24 @ 13:30 by Mauro Smith MD) Gallstones Hypertension Surgical History (Updated 03/01/24 @ 13:34 by DARYL Nieto) No pertinent past surgical history Family History (Updated 03/01/24 @ 13:35 by DARYL Nieto) Other Cancer Social History Alcohol intake: never Patient Tobacco Use Status: Never used Tobacco Review of Systems Const Denies chills and Denies fever(s) Card Denies chest pain, Denies dyspnea and Denies dyspnea on exertion Resp Denies cough, Denies dyspnea and Denies dyspnea on exertion GI Denies hematochezia and Denies change in bowel habits Denies hematuria Musc Denies back pain, Reports arthralgias and Reports limited range of motion Neuro Denies focal weakness and Denies convulsions Psych Denies depression and Denies mood swings Physical Exam Vital Signs: Last Vital Signs Pulse 59 03/01/24 13:30 BP 167/79 H 03/01/24 13:30 BMI result Body Mass Index 27.8 Const Other: Using a cane to ambulate General: comfortable and no acute distress Orientation/consciousness: patient oriented x3 Neck Neck: Yes no lymphadenopathy Resp Auscultation: clear to auscultation bilaterally Cardio Rhythm: regular rhythm GI Palpation (GI): Soft to palpation, nontender and no guarding Neuro General: patient oriented x3 Assessment & Plan Assessment & Plan (1) Gallstones: Code(s): K80.20 - Calculus of gallbladder without cholecystitis without obstruction Category: Medical Plan: She can ultrasound for what was described as burning pain in her esophagus and this shows gallstones. Her symptoms appeared to be very atypical for gallbladder disease. She denies any pain in the right upper quadrant. I did explain to her the option of cholecystectomy. I discussed the technique of laparoscopic cholecystectomy and possible conversion to open cholecystectomy. I explained the risks including but not limited to bleeding, infection, injury to other organs including bowel, liver and the bile ducts, bile leak, retained stones, as well as the benefits and alternatives. She does state that she does not feel that she has symptoms from her gallbladder and would like to hold off on any surgery for now. I explained to her daughter the we will symptoms especially right upper quadrant pain. She can come back to the office on a p.r.n. basis. Coding Level of Care Code New Pt Level 3 (07220) Diagnoses Gallstones K80.20
[2024-03-01 13:30] VITALS: BP 167/79; PULSE 59; BMI 27.8
== END 2024-03-01 13:49 | disposition home or self-care (01) ==
PROVIDERS: Visit Provider Surgery
DX: K80.20 Calculus of gallbladder without cholecystitis without obstruction (principal)
CPT/HCPCS: 99203

== ENCOUNTER → 2024-03-01 13:22 | Outpatient (BNVA) | payer MEDICARE, SELFPAY | PROVIDERS: Visit Provider Surgery | DX: K80.20 Calculus of gallbladder without cholecystitis without obstruction (principal) | CPT/HCPCS: 99202 ==

== ENCOUNTER 2024-04-08 11:40 | Emergency (ER) | payer OTHER, SELFPAY ==
--- NOTE | ~2024-04-08 | XR_ITS ---
EXAMINATION: XR KNEE, RIGHT CLINICAL INFORMATION: Knee pain. COMPARISON: Right knee radiographs dated 09/22/2017. TECHNIQUE: Four views of the right knee. FINDINGS: There is no acute fracture. No dislocation. There is moderate degenerative disease of the medial and lateral compartments characterized by joint space narrowing, subchondral sclerosis, and marginal osteophytosis. There are severe degenerative disease of the patellofemoral joint. No joint effusion. XR/XR knee RT 4V IMPRESSION: Moderate to severe tricompartmental degenerative change as described.
--- NOTE | ~2024-04-08 | XR_ITS ---
EXAMINATION: XR KNEE, LEFT CLINICAL INFORMATION: Knee pain. COMPARISON: None available. TECHNIQUE: Four views of the left knee. FINDINGS: There is no acute fracture. There is moderate degenerative disease involving the medial and lateral compartments characterized by joint space narrowing, subchondral sclerosis, and marginal osteophytosis. There is moderate to severe degenerative disease of the patellofemoral joint. There is a small joint effusion. XR/XR knee LT 4V IMPRESSION: Tricompartmental degenerative changes. Small joint effusion.
[2024-04-08 11:51] VITALS: BP 158/78; PULSE 75; RESP 18; TEMP 36.6; O2SAT 98; BMI 28.0
--- NOTE | 2024-04-08 11:51 | ED.GENADULT ---
HPI - General Adult General Chief complaint: Extremity Injury, Lower Stated complaint: knee pain, pain when urinating Related Data Previous Rx's ?Medication ?Instructions ?Recorded benzonatate 200 mg capsule 200 mg PO TID PRN cough #20 caps 02/21/23 Allergies Allergy/AdvReac Type Severity Reaction Status Date / Time No Known Allergies Allergy Verified 04/08/24 11:52 [facility] Social History Social History Advance Directives: No Advance Directives Information Provided: Yes Physical Exam ED Vital Signs: BMI result Body Mass Index 28.0 Course Course Course Narrative: This is an RME: Additional HPI, ROS, PE not included below will be deferred to primary provider. RME assessment and note performed by: Mirta Martinez PA-C This is a 78 year female presents emergency department with complaints of worsening bilateral knee pain and dysuria for the last 3 months. No recent trauma, injury or falls. She states that she has had dysuria for the last 3 months. She also states that her urine has been very dark. She has a primary care who she has seen however states that she does not like the care she has been receiving through their office. No signs stable. She has in no acute distress. Further ER evaluation needed. Plan: Labs, UA, xr knees BL Reevaluation(s) Reevaluation #1: Patient left without completing treatment. Medical Decision Making Lab Data 04/08/24 12:43 04/08/24 12:43 Labs: Lab Results 04/08/24 Range/Units 12:43 WBC 6.1 (4.8-10.8) X10*3/uL RBC 3.63 L (4.20-5.50) X10*6/uL Hgb 11.7 L (12.0-16.0) g/dl Hct 34.2 L (37.0-47.0) % MCV 94.2 (80.0-98.0) fL MCH 32.2 (27.0-33.0) pg MCHC 34.2 (31.0-35.0) g/dl RDW 13.3 (11.0-16.0) % Plt Count 285 (160-400) X10*3/uL MPV 9.2 L (9.4-12.3) fL Immature Gran % (Auto) 0.2 (0.0-0.4) % Neut % (Auto) 45.7 (45-73) % Lymph % (Auto) 39.2 (20-40) % [place] % (Auto) 7.3 (2-11) % Eos % (Auto) 6.8 H (0-4) % Baso % (Auto) 0.8 (0-2) % Lymph # (Auto) 2.4 (1.2-4.9) X10*3/uL [place] # (Auto) 0.4 (0.1-1.2) X10*3/uL Eos # (Auto) 0.4 (0.0-0.4) X10*3/uL Baso # (Auto) 0.1 (0.0-0.2) X10*3/uL Abs Immat Gran (auto) 0.01 (0.00-0.03) X10*3/uL Absolute Neuts (auto) 2.8 (2.0-8.3) x10*3/uL Absolute Nucleated RBC 0.000 (0.0-0.012) X10*3/uL Nucleated RBC % (auto) 0.0 (0.0-0.2) /100WBC Sodium 140 (135-145) mmol/L Potassium 4.0 (3.3-5.1) mmol/L Chloride 105 (96-108) mmol/L Carbon Dioxide 30 H (22-29) mmol/L Anion Gap 9 L (12-20) BUN 14 (9-16) mg/dL Creatinine 0.89 (0.5-1.4) mg/dL Estim Creat Clear Calc 49.4 Estimated GFR > 60 Random Glucose 106 (60-115) mg/dL Calcium 9.5 (8.4-10.2) mg/dL Magnesium 2.0 (1.6-2.6) mg/dL Total Bilirubin 0.5 (0.0-1.0) mg/dL Direct Bilirubin 0.2 (0.0-0.5) mg/dL AST 13 (5-31) U/L ALT 12 (0-31) U/L Alkaline Phosphatase 69 (39-117) U/L Total Protein 7.4 (6.5-8.0) g/dL Albumin 4.1 (3.5-5.0) g/dL Urine Color Yellow Urine Appearance Clear Urine pH 5.5 (5.0-9.0) Ur Specific [place] 1.025 (1.005-1.025) Urine Protein Negative (Neg-Trace) mg/dL Urine Glucose (UA) Negative (Negative) mg/dL Urine Ketones Trace (Negative) mg/dL Urine Blood Negative (Negative) Urine Nitrite Negative (Negative) Ur Leukocyte Esterase Negative (Negative) Discharge Plan Discharge Clinical Impression: Extremity pain Patient Disposition: Left W/O Completing Treatment Prescriptions: No Action benzonatate 200 mg capsule 200 mg PO TID PRN (Reason: cough) Qty: 20 0RF Discharge Date/Time: 04/08/24 18:09
[2024-04-08 12:48] LABS: MANUAL DIFF FLAG NO
[2024-04-08 12:49] LABS: Basophils Absolute Auto 0.1 X10*3/uL (0.0-0.2); Basophils Percent Auto 0.8 % (0-2); Eosinophils Absolute Auto 0.4 X10*3/uL (0.0-0.4); Eosinophils Percent Auto 6.8 % (0-4); Hematocrit 34.2 % (37.0-47.0); Hemoglobin 11.7 g/dl (12.0-16.0); Imm Gran Abs Auto 0.01 X10*3/uL (0.00-0.03); Imm Gran Pct Auto 0.2 % (0.0-0.4); Lymphocytes Absolute Auto 2.4 X10*3/uL (1.2-4.9); Lymphocytes Percent Auto 39.2 % (20-40); Mean Corpuscular HGB Conc 34.2 g/dl (31.0-35.0); Mean Corpuscular Hemoglobin 32.2 pg (27.0-33.0); Mean Corpuscular Volume 94.2 fL (80.0-98.0); Mean Platelet Volume 9.2 fL (9.4-12.3); Monocytes Absolute Auto 0.4 X10*3/uL (0.1-1.2); Monocytes Percent Auto 7.3 % (2-11); Neutrophils Absolute Auto 2.8 x10*3/uL (2.0-8.3); Neutrophils Percent Auto 45.7 % (45-73); Platelet Count 285 X10*3/uL (160-400); Red Blood Count 3.63 X10*6/uL (4.20-5.50); Red Cell Distribution Width 13.3 % (11.0-16.0); White Blood Count 6.1 X10*3/uL (4.8-10.8)
[2024-04-08 12:50] LABS: Appearance Urine Clear; Color Urine Yellow; Glucose Urine UA Negative (Negative); Leukocyte Esterase Urine Negative (Negative); Nitrite Urine Negative (Negative); PH 5.5 (5.0-9.0); Specific Gravity - Urine 1.025 (1.005-1.025); Urine Blood Negative (Negative); Urine Ketones Trace mg/dL (Negative); Urine Protein Negative (Neg-Trace)
[2024-04-08 13:02] LABS: Alanine Aminotransferase 12 U/L (0-31); Albumin Level 4.1 g/dL (3.5-5.0); Alkaline Phosphatase 69 U/L (39-117); Anion Gap 9 (12-20); Aspartate Amino Transferase 13 U/L (5-31); Bilirubin Direct 0.2 mg/dL (0.0-0.5); Bilirubin Total 0.5 mg/dL (0.0-1.0); Blood Urea Nitrogen 14 mg/dL (9-16); Calcium 9.5 mg/dL (8.4-10.2); Carbon Dioxide 30 mmol/L (22-29); Chloride 105 mmol/L (96-108); Creatinine Clr Calc Pharmacy 49.4; Estimated Glomerular Filt Rate > 60; Glucose Random 106 mg/dL (60-115); Sodium 140 mmol/L (135-145); Total Protein 7.4 g/dL (6.5-8.0)
== END 2024-04-08 18:09 | disposition left against medical advice (07) ==
PROVIDERS: Physician Assistant Medical; Emergency Provider Emergency Medicine
DX: M25.562 Pain in left knee (principal); M25.561 Pain in right knee
CPT/HCPCS: 36415; 73564; 80048; 80076; 81003; 83735; 85025; 99282; 99283

== ENCOUNTER 2024-06-08 12:43 | Outpatient (AMB) | payer MEDICARE, SELFPAY ==
[2024-06-08 12:49] VITALS: BP 142/72; PULSE 65; O2SAT 97; BMI 27.2
--- NOTE | 2024-06-08 12:49 | MHC.PC.OV ---
Vital Signs 06/08/24 12:49 Height 5 ft 3 in Weight 153 lb 8 oz BMI 27.2 BP 142/72 H Blood Pressure Location Lt brachial Position Sitting Pulse 65 Pulse Source Pulse Oximeter Pulse Oximetry (%) 97 Oxygen Delivery Method Room Air Intake Visit Reasons: medical dermatologist- establish care Intake Note: Patient is a new patient here to establish care for HTn and ongoing dry mouth. Transferring care from [facility]. Medical records have been requested today. 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 Accompanied by: Daughter Allergies No Known Allergies Allergy (Mild, Verified 06/08/24 13:11) NONE Medication List - Last Reconciled 06/08/24 by Ingrid Ramirez PA-C amlodipine 5 mg PO DAILY atorvastatin 40 mg PO DAILY omeprazole magnesium (Prilosec OTC) 20 mg PO DAILY Tobacco use date assessed: 06/08/24 Fall risk assessment: No Falls in past year Last assessed Fall Risk: 06/08/24 Dental Screening Dental Screen Date: 06/08/24 Did you have a dental visit in the last 12 months?: No Did you have a dental problem in the last 6 months where you did not have access to dental care?: Yes Was dental information given to patient?: Yes HPI medical dermatologist- establish care HPI Details 79-year-old female with past medical history of hypertension coming in to the office with the 1st time.? In review of the notes, [place] [facility] ER visit for gallstones discussed possible cholecystectomy and deferred at this time. Patient declined lapel padder blindstitch and used family member as lapel padder blindstitch. Today she tells us she had been having right knee pain for several years now that has been worsening. She has a history of high cholesterol, hypertension, and GERD and has been without medications for several months now. She also mentioned she has been dealing with increased anxiety and depression surrounding family stress. [facility] Medical History Gallstones Hypertension Surgical History No pertinent past surgical history Family History Other Cancer Social History Housing: Apartment Alcohol intake: never Patient Tobacco Use Status: Never used Tobacco e-Cigarette/Vaping Use: Never Used service: No Current occupational status: disabled Cognitive needs: No Hearing needs: No Vision needs: No Questionnaire PHQ-9 Over the last 2 weeks, how often have you been bothered by any of the following problems? 1. Little interest or pleasure in doing things: not at all 2. Feeling down, depressed, or hopeless: not at all 3. Trouble falling or staying asleep, or sleeping too much: several days 4. Feeling tired or having little energy: not at all 5. Poor appetite or overeating: several days 6. Feeling bad about yourself - or that you are a failure or have let yourself or your family down: not at all 7. Trouble concentrating on things, such as reading the newspaper or watching television: not at all 8. Moving or speaking so slowly that other people could have noticed. Or the opposite - being so fidgety or restless that you have been moving around a lot more than usual: not at all 9. Thoughts that you would be better off or of hurting yourself in some way: not at all Total score: 2 91059 - PHQ-9 Billing: Yes Source: Developed by Drs. Jackson Ford, Lacie Claros, Je Aparicio and colleagues, with an educational devon from [employer]. Thrive Questionnaire Date Thrive assessed: 06/08/24 I am a: Patient What is your living situation today?: I have a steady place to live Within the past 12 months, did the food you bought not last and you didn't have the money to get more?: Never true Within the past 12 months, did you worry whether your food would run out before you got money to buy more?: Never true Do you have trouble paying for medicines?: No Do you have trouble getting transportation to medical appointments?: No Do you have trouble paying your heating and electricity bill?: No Do you have trouble taking care of your child, family member or friend?: No Do you have trouble with day-to-day activities such as bathing, preparing meals, shopping, managing finances, etc.?: No Are you currently unemployed and looking for a job?: No Are you interested in more education?: No Please select the resources that you would like help with: Utilities THRIVE Score: 0 AUDIT C Alcohol Use Questionnaire (AUDIT-C) 1. How often do you have a drink containing alcohol?: Never 2. How many drinks containing alcohol do you have on a typical day when you are drinking?: 1 or 2 3. How often do you have six or more drinks on one occasion?: Never Total Score: 0 HONORIO-7 AMB Questionnaire HONORIO-7 Date HONORIO - 7 assessed: 06/08/24 Feeling nervous, anxious, or on edge: 0 = Not at all Not being able to stop or control worryin = More than half the days Worrying too much about different things: 2 = More than half the days Trouble relaxin = Several days Being so restless that it is hard to sit still: 2 = More than half the days Becoming easily annoyed or irritable: 0 = Not at all Feeling afraid as if something awful might happen: 2 = More than half the days Total HONORIO-7 score (0-4 normal; 5-9 mild; 10-14 moderate; 15-21 severe): 9 Source: Developed by Drs. Jackson Ford, Lacie Claros, Je Aparicio and colleagues, with an educational devon from [employer]. HONORIO-7 Assessment Billing HONORIO-7 Assessment Tool: HONORIO-7 Assessment 52887 Review of Systems Const Denies body aches, Denies fatigue, Denies fever(s), Denies frequent falls, Denies headache(s) and Denies weakness Eyes Reports no additional complaints and Denies change in vision ENT Denies dysphagia, Denies dizziness, Denies facial pain, Denies headache(s), Denies nasal congestion and Denies odynophagia Card Denies chest pain, Denies syncope, Denies irregular heart rhythm, Denies leg edema, Denies lightheadedness and Denies dyspnea Resp Denies cough and Denies dyspnea GI Denies constipation, Denies dysphagia, Denies dyspepsia, Denies diarrhea, Denies nausea, Denies odynophagia and Denies vomiting Denies urinary frequency, Denies dysuria, Denies urinary hesitancy and Denies urinary urgency Musc Details: Bilateral knee pain right greater than left. Denies back pain and Denies myalgias Skin/Breast Details: Chronic stuck on lesions on the face chest and neck Neuro Denies dizziness, Denies syncope, Denies frequent falls, Denies headache(s) and Denies weakness Psych Reports no additional complaints Endo Denies fatigue Physical exam (Primary Care) Vital Signs: Last Vital Signs Pulse 65 06/08/24 12:49 BP 142/72 H 06/08/24 12:49 Pulse Ox 97 06/08/24 12:49 Oxygen Delivery Method Room Air 06/08/24 12:49 BMI result Body Mass Index 27.2 Tobacco/Smoking Status: Tobacco use Status Tobacco use date assessed 06/08/24 06/08/24 13:01 Patient Tobacco Use Status Never used Tobacco 06/08/24 13:01 e-Cigarette/Vaping Use Never Used 06/08/24 13:01 PHQ-9: PHQ-9 Score PHQ-9: Total score 2 06/08/24 13:22 Thrive Assessment: Date of Thrive Assessment Date Thrive assessed 06/08/24 06/08/24 13:01 Const General: cooperative, healthy appearing, comfortable and no acute distress Orientation/consciousness: patient oriented x3 HENMT Head: Yes normocephalic Ears: hearing grossly normal bilaterally General nose exam: Normal external nose present Eyes General: appearance normal, both eyes and all related structures Conjunctivae: conjunctivae normal Neck Neck: Yes full ROM and Yes no lymphadenopathy Resp Effort & Inspection: normal respiratory effort Auscultation: clear to auscultation bilaterally, no crackles, no rales, no rhonchi and no wheezes Cardio Rate: regular rate Rhythm: regular rhythm Skin Other: Multiple dark stuck on lesions on the face chest and neck Neuro General: patient oriented x3 Gait exam (Neuro): Normal gait present Extrem Other: Pain to palpation of right knee and bilateral crepitus General: Yes normal to inspection, Yes full ROM and No edema Psych Affect: normal affect Attitude: cooperative Insight: Good insight present (Psych) Judgement: Good judgement present (Psych) Assessment and Plan Assessment & Plan (1) Hypertension: Code(s): I10 - Essential (primary) hypertension Plan: Blood pressure was elevated in the office today 142/72 patient is on amlodipine and has been without this medication for a month now. Refilled amlodipine I will follow up in 2 months for re-evaluation. Avoid salt intake and encourage healthy diet and regular exercise. (2) Gallstones: Code(s): K80.20 - Calculus of gallbladder without cholecystitis without obstruction Plan: Follow up with General surgery as needed. 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 Omeprazole refilled today. Avoid trigger foods such as citrus, tomato products, soda, caffeine, spicy foods and other foods that may be irritating to your stomach. Avoid laying flat 3-4 hours after eating and elevate the head of the bed 30 degrees to prevent acid from moving into the esophagus. (4) Hypercholesteremia: Code(s): E78.00 - Pure hypercholesterolemia, unspecified Plan: Avoid foods that are high in cholesterol such as red meat, fried foods, eggs and baked goods. Triglyceride goal of less than 150 and LDL goal of less than 100. Continue on atorvastatin, refilled today. Reordered for cholesterol labs. (5) Knee pain: Code(s): M25.569 - Pain in unspecified knee Plan: Patient is having bilateral knee pain worse in the right and primarily on the posterior aspect of the knee. She does have crepitus on exam bilaterally. Ordered for bilateral knee x-ray for further evaluation. Voltaren gel may be used for pain. (6) Anxiety: Code(s): F41.9 - Anxiety disorder, unspecified Plan: Patient mentions increased anxiety around family matters. Discussed counseling and patient feels this may be helpful referral placed today. (7) Facial lesion: Code(s): L98.9 - Disorder of the skin and subcutaneous tissue, unspecified Plan: Patient has multiple facial lesions without crusting or bleeding appears to be most consistent with seborrheic keratosis. Referral to Dermatology placed for further evaluation and possible biopsy. Plan Ordered for routine blood work and we will follow up in 2 months for annual exam and follow up on chronic conditions. This note was constructed using voice recognition software. While every effort has been made to ensure accuracy and block mason, still areas may have been included sometimes these areas may affect the content or meeting of the given symptoms. Total time spent caring for the patient today was 30 minutes. This includes time spent before the visit reviewing the chart, time spent during the visit, and time spent after the visit and documentation. Orders: Orders XR knee RT 2V Today M25.569 - Pain in unspecified knee Comprehensive Met. Panel Today Z00.00 - Encounter for general adult medical examination without abnormal findings TSH reflex Free T4 Today Z00.00 - Encounter for general adult medical examination without abnormal findings Free T4 (Free Thyroxine) Today Z00.00 - Encounter for general adult medical examination without abnormal findings Vitamin D 25-OH (D2 and D3) Today Z00.00 - Encounter for general adult medical examination without abnormal findings Lipid Panel Today Z00.00 - Encounter for general adult medical examination without abnormal findings XR knee LT 2V Today M25.569 - Pain in unspecified knee Complete Blood Count Auto Diff Today Z00.00 - Encounter for general adult medical examination without abnormal findings Vitamin B12 and Folate Today Z00.00 - Encounter for general adult medical examination without abnormal findings Referrals Counseling Referral F41.9 - Anxiety disorder, unspecified Dermatology Referral L98.9 - Disorder of the skin and subcutaneous tissue, unspecified Medications: New atorvastatin 40 mg PO DAILY 90 tabs 2RF diclofenac sodium 1% (Voltaren Arthritis Pain) apply to bilateral knees 2 grams topical QID PRN 100 grams 0RF pain amlodipine 5 mg PO DAILY 90 tabs 2RF Refilled omeprazole magnesium (Prilosec OTC) 20 mg PO DAILY 90 tabs 2RF Coding Level of Care Code New Pt Level 4 (70619) Diagnoses Hypertension I10 Gallstones K80.20 GERD (gastroesophageal reflux disease) K21.9 Hypercholesteremia E78.00 Knee pain M25.569 Anxiety F41.9 Facial lesion L98.9 Additional Codes HONORIO-7 Assessment Billing - HONORIO-7 Assessment Tool: HONORIO-7 Assessment [id number] ([id number])
== END 2024-06-08 13:42 | disposition home or self-care (01) ==
DX: I10 Essential (primary) hypertension (principal); K80.20 Calculus of gallbladder without cholecystitis without obstruction; K21.9 Gastro-esophageal reflux disease without esophagitis; E78.00 Pure hypercholesterolemia, unspecified; M25.569 Pain in unspecified knee; F41.9 Anxiety disorder, unspecified; L98.9 Disorder of the skin and subcutaneous tissue, unspecified
CPT/HCPCS: 99204

== ENCOUNTER 2024-07-13 09:12 | Outpatient (REF) | payer MEDICARE, SELFPAY ==
--- NOTE | ~2024-07-13 | XR_ITS ---
EXAMINATION: XR KNEE, BILATERAL CLINICAL INFORMATION: Pain in the knees. COMPARISON: X-rays of the knees March 2024. TECHNIQUE: 2 views of each knee. FINDINGS: RIGHT KNEE: There are marginal osteophytes about all compartments with mild joint space narrowing of the medial compartment. Limited evaluation of the patellofemoral compartment without patellar view. There is no effusion. LEFT KNEE: Marginal osteophytes about all compartments without definite joint space narrowing. Limited evaluation o the patellofemoral compartment without patellar view. No effusion. 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 Unchanged. Limited evaluation of the patellofemoral compartment as there is no patellar view. Left Knee: Mild tricompartmental osteoarthritis. Unchanged. Limited evaluation of the patellofemoral compartment as there is no patellar view. Electronically signed by: Ariel De Luna MD 07/19/2024 02:57 PM EDT
--- NOTE | ~2024-07-13 | XR_ITS ---
EXAMINATION: XR KNEE, BILATERAL CLINICAL INFORMATION: Pain in the knees. COMPARISON: X-rays of the knees March 2024. TECHNIQUE: 2 views of each knee. FINDINGS: RIGHT KNEE: There are marginal osteophytes about all compartments with mild joint space narrowing of the medial compartment. Limited evaluation of the patellofemoral compartment without patellar view. There is no effusion. LEFT KNEE: Marginal osteophytes about all compartments without definite joint space narrowing. Limited evaluation o the patellofemoral compartment without patellar view. No effusion. XR/XR knee RT 2V IMPRESSION: Right Knee: [id number]-qk-cilunthw tricompartmental osteoarthritis. Unchanged. Limited evaluation of the patellofemoral compartment as there is no patellar view. Left Knee: Mild tricompartmental osteoarthritis. Unchanged. Limited evaluation of the patellofemoral compartment as there is no patellar view. Electronically signed by: Ariel De Luna MD 07/19/2024 02:57 PM EDT
[2024-07-13 09:51] LABS: MANUAL DIFF FLAG NO
[2024-07-13 09:58] LABS: Basophils Absolute Auto 0.1 X10*3/uL (0.0-0.2); Basophils Percent Auto 1.2 % (0-2); Eosinophils Absolute Auto 0.6 X10*3/uL (0.0-0.4); Eosinophils Percent Auto 10.2 % (0-4); Hematocrit 36.3 % (37.0-47.0); Imm Gran Abs Auto 0.01 X10*3/uL (0.00-0.03); Imm Gran Pct Auto 0.2 % (0.0-0.4); Lymphocytes Percent Auto 35.2 % (20-40); Mean Corpuscular HGB Conc 33.1 g/dl (31.0-35.0); Mean Corpuscular Hemoglobin 31.7 pg (27.0-33.0); Mean Platelet Volume 9.4 fL (9.4-12.3); Monocytes Absolute Auto 0.4 X10*3/uL (0.1-1.2); Monocytes Percent Auto 6.4 % (2-11); Neutrophils Absolute Auto 2.7 x10*3/uL (2.0-8.3); Neutrophils Percent Auto 46.8 % (45-73); Platelet Count 291 X10*3/uL (160-400); Red Blood Count 3.78 X10*6/uL (4.20-5.50); Red Cell Distribution Width 13.3 % (11.0-16.0); White Blood Count 5.8 X10*3/uL (4.8-10.8)
[2024-07-13 10:55] LABS: Alanine Aminotransferase 17 U/L (0-31); Albumin Level 4.1 g/dL (3.5-5.0); Alkaline Phosphatase 72 U/L (39-117); Anion Gap 9 (12-20); Aspartate Amino Transferase 16 U/L (5-31); Bilirubin Total 0.6 mg/dL (0.0-1.0); Blood Urea Nitrogen 13 mg/dL (9-16); Calcium 9.1 mg/dL (8.4-10.2); Carbon Dioxide 30 mmol/L (22-29); Chloride 107 mmol/L (96-108); Cholesterol 154 mg/dL (<200); Estimated Glomerular Filt Rate > 60; Glucose Random 107 mg/dL (60-115); HDL Cholesterol 47 mg/dL (>40); LDL Cholesterol Calculated 97 mg/dL (<100); Potassium 4.4 mmol/L (3.3-5.1); Sodium 142 mmol/L (135-145); Total Protein 7.5 g/dL (6.5-8.0); Triglycerides 51 mg/dL (<150)
[2024-07-13 11:12] LABS: Folate 13.5 ng/mL (> or = 4.0); Vitamin B12 153 pg/mL (200-900)
[2024-07-13 11:14] LABS: Free T4 (Free Thyroxine) 0.92 ng/dL (0.71-1.85); TSH reflex Free T4 1.26 uIU/mL (0.32-4.0)
[2024-07-18 16:04] LABS: Vitamin D 25-OH, D2 <4 ng/mL; Vitamin D 25-OH, D3 24 ng/mL; Vitamin D 25-OH, Total 24 ng/mL (30-100)
== END 2024-07-13 09:13 | disposition home or self-care (01) ==
LOC: HO.LAB 09:12
DX: Z00.00 Encounter for general adult medical examination without abnormal findings (principal); M25.561 Pain in right knee; M25.562 Pain in left knee
CPT/HCPCS: 36415; 73560; 80053; 80061; 82306; 82607; 82746; 84439; 84443; 85025

== ENCOUNTER 2024-08-10 13:14 | Outpatient (REF) | payer MEDICARE, SELFPAY ==
[2024-08-10 17:14] LABS: Appearance Urine Clear; Color Urine Yellow; Glucose Urine UA Negative (Negative); Leukocyte Esterase Urine Negative (Negative); Nitrite Urine Negative (Negative); PH 5.5 (5.0-9.0); Urine Blood Negative (Negative); Urine Ketones Negative (Negative); Urine Protein Negative (Neg-Trace)
[2024-08-11 13:29] LABS: Bacterial Vaginosis PCR NEGATIVE (Negative); Candida Group PCR DETECTED (Not Detect); Candida glab krusei PCR NOT DETECTED (Not Detect); Trichomonas vaginalis PCR NOT DETECTED (Not Detect)
== END 2024-08-10 13:15 | disposition home or self-care (01) ==
LOC: HO.LAB 13:14
DX: Z00.00 Encounter for general adult medical examination without abnormal findings (principal); R35.89 Other polyuria; N89.8 Other specified noninflammatory disorders of vagina; F41.9 Anxiety disorder, unspecified; E78.00 Pure hypercholesterolemia, unspecified; K21.9 Gastro-esophageal reflux disease without esophagitis; I10 Essential (primary) hypertension; L98.9 Disorder of the skin and subcutaneous tissue, unspecified; Z78.0 Asymptomatic menopausal state; M17.0 Bilateral primary osteoarthritis of knee; R01.1 Cardiac murmur, unspecified; M25.551 Pain in right hip; Z79.899 Other long term (current) drug therapy
CPT/HCPCS: 0352U; 81002; 81003; 96127; 99212; 99397

== ENCOUNTER 2024-08-10 13:14 | Outpatient (AMB) | payer MEDICARE, SELFPAY ==
[2024-08-10 13:17] VITALS: BP 138/66; PULSE 79; O2SAT 98; BMI 26.7
--- NOTE | 2024-08-10 13:17 | MHC.PC.OV ---
Vital Signs 08/10/24 13:17 Height 5 ft 3 in Weight 151 lb BMI 26.7 BP 138/66 Blood Pressure Location Lt brachial Position Sitting Pulse 79 Pulse Source Pulse Oximeter Pulse Oximetry (%) 98 Oxygen Delivery Method Room Air Intake Visit Reasons: PE Allergies No Known Allergies Allergy (Mild, Verified 08/10/24 13:22) NONE Medication List - Last Reconciled 08/10/24 by Ingrid Ramirez PA-C amlodipine 5 mg PO DAILY atorvastatin 40 mg PO DAILY benzonatate 200 mg PO TID PRN cholecalciferol (vitamin D3) 25 mcg PO DAILY cyanocobalamin (vitamin B-12) 1,000 mcg PO DAILY diclofenac sodium 1% (Voltaren Arthritis Pain) 2 grams topical QID PRN omeprazole magnesium (Prilosec OTC) 20 mg PO DAILY Tobacco use date assessed: 08/10/24 Fall risk assessment: 1 Fall in past year Last assessed Fall Risk: 08/10/24 Dental Screening Dental Screen Date: 08/10/24 Did you have a dental visit in the last 12 months?: Yes Did you have a dental problem in the last 6 months where you did not have access to dental care?: No Was dental information given to patient?: Patient has dentist HPI PE HPI Details 79-year-old female with past medical history of hypertension, GERD, hypercholesterolemia coming to the office for annual exam. Patient states she continues to have knee pain right greater than left. She also mentions weight loss which has been consistent for the last year. She denies blood in the stool, changes in stool habits or caliber and has not had a colonoscopy in many years. She also mentioned she has been having vaginal itching and discharge that is foul smelling and milky colored. Lastly she mentioned she had a fall last week after slipping on a broken egg. Denies head strike, loss of consciousness or dizziness prior to the fall. She did fall on her right side and continues to have right hip pain. [facility] Medical History Gallstones Hypertension Surgical History No pertinent past surgical history Family History Other Cancer Social History Housing: Apartment Alcohol intake: never Patient Tobacco Use Status: Never used Tobacco e-Cigarette/Vaping Use: Never Used service: No Current occupational status: disabled Cognitive needs: No Hearing needs: No Vision needs: No Questionnaire PHQ-9 Over the last 2 weeks, how often have you been bothered by any of the following problems? 1. Little interest or pleasure in doing things: not at all 2. Feeling down, depressed, or hopeless: not at all 3. Trouble falling or staying asleep, or sleeping too much: several days 4. Feeling tired or having little energy: not at all 5. Poor appetite or overeating: several days 6. Feeling bad about yourself - or that you are a failure or have let yourself or your family down: not at all 7. Trouble concentrating on things, such as reading the newspaper or watching television: not at all 8. Moving or speaking so slowly that other people could have noticed. Or the opposite - being so fidgety or restless that you have been moving around a lot more than usual: not at all 9. Thoughts that you would be better off or of hurting yourself in some way: not at all Total score: 2 68715 - PHQ-9 Billing: Yes Source: Developed by Drs. Jackson Ford, Lacie Claros, Je Aparicio and colleagues, with an educational devon from [employer]. Thrive Questionnaire Date Thrive assessed: 06/08/24 I am a: Patient What is your living situation today?: I have a steady place to live Within the past 12 months, did the food you bought not last and you didn't have the money to get more?: Never true Within the past 12 months, did you worry whether your food would run out before you got money to buy more?: Never true Do you have trouble paying for medicines?: No Do you have trouble getting transportation to medical appointments?: No Do you have trouble paying your heating and electricity bill?: No Do you have trouble taking care of your child, family member or friend?: No Do you have trouble with day-to-day activities such as bathing, preparing meals, shopping, managing finances, etc.?: No Are you currently unemployed and looking for a job?: No Are you interested in more education?: No Please select the resources that you would like help with: Utilities Currently or been in a relationship where the following occur: No concerns reported THRIVE Score: 0 AUDIT C Alcohol Use Questionnaire (AUDIT-C) 1. How often do you have a drink containing alcohol?: Never 2. How many drinks containing alcohol do you have on a typical day when you are drinking?: 1 or 2 3. How often do you have six or more drinks on one occasion?: Never Total Score: 0 HONORIO-7 AMB Questionnaire HONORIO-7 Date HONORIO - 7 assessed: 06/08/24 Feeling nervous, anxious, or on edge: 0 = Not at all Not being able to stop or control worryin = More than half the days Worrying too much about different things: 2 = More than half the days Trouble relaxin = Several days Being so restless that it is hard to sit still: 2 = More than half the days Becoming easily annoyed or irritable: 0 = Not at all Feeling afraid as if something awful might happen: 2 = More than half the days Total HONORIO-7 score (0-4 normal; 5-9 mild; 10-14 moderate; 15-21 severe): 9 Source: Developed by Drs. Jackson Ford, Lacie Claros, Je Aparicio and colleagues, with an educational devon from [employer]. HONORIO-7 Assessment Billing HONORIO-7 Assessment Tool: HONORIO-7 Assessment 52470 Review of Systems Const Denies body aches, Denies fatigue, Denies fever(s), Denies frequent falls, Denies headache(s) and Denies weakness Eyes Reports no additional complaints and Denies change in vision ENT Denies dysphagia, Denies dizziness, Denies facial pain, Denies headache(s), Denies nasal congestion and Denies odynophagia Card Denies chest pain, Denies syncope, Denies irregular heart rhythm, Denies leg edema, Denies lightheadedness and Denies dyspnea Resp Denies cough and Denies dyspnea GI Denies abdominal pain, Denies melena, Denies hematochezia, Denies constipation, Denies dysphagia, Reports dyspepsia, Reports heartburn, Denies diarrhea, Denies nausea, Denies odynophagia and Denies vomiting Reports as per HPI, Denies urinary frequency, Denies dysuria and Denies urinary hesitancy Musc Details: enmanuel knee pain and right hip pain Denies back pain and Denies myalgias Skin/Breast Reports system reviewed and no additional complaints, except as documented Neuro Denies dizziness, Denies syncope, Denies frequent falls, Denies headache(s) and Denies weakness Psych Reports no additional complaints Endo Denies fatigue Physical exam (Primary Care) Vital Signs: Last Vital Signs Pulse 79 08/10/24 13:17 BP 138/66 08/10/24 13:17 Pulse Ox 98 08/10/24 13:17 Oxygen Delivery Method Room Air 08/10/24 13:17 BMI result Body Mass Index 26.7 Tobacco/Smoking Status: Tobacco use Status Tobacco use date assessed 08/10/24 08/10/24 13:25 Patient Tobacco Use Status Never used Tobacco 08/10/24 13:20 e-Cigarette/Vaping Use Never Used 08/10/24 13:20 PHQ-9: PHQ-9 Score PHQ-9: Total score 2 08/10/24 13:54 Thrive Assessment: Date of Thrive Assessment Date Thrive assessed 06/08/24 08/10/24 13:20 Currently or been in a relationship where the following occur: No concerns reported Advance Care Planning discussion: Completed/Scanned Date of discussion: 08/10/24 Who was present: daughter, patient Forms completed: MOLST Time spent: 1-15 minutes, not on file Actual minutes spent: 5 Const General: cooperative, healthy appearing, comfortable and no acute distress Orientation/consciousness: patient oriented x3 HENMT Head: Yes normocephalic Ears: hearing grossly normal bilaterally, external ears normal, TM's normal bilaterally and Abnormal EAC present excessive cerumen bilateral General nose exam: Normal external nose present Face and sinus: Yes normal facial exam and Yes sinuses nontender Mouth: Normal oral and palatal mucosa present and tongue normal Throat: Yes posterior oropharynx normal Eyes General: appearance normal, both eyes and all related structures Conjunctivae: conjunctivae normal Pupils: Equal, round and reactive pupils present EOM: EOMs intact bilaterally and No Nystagmus present Neck Neck: Yes normal visual inspection, Yes full ROM and Yes no lymphadenopathy Chest Chest palpation & inspection: normal inspection of the chest Resp Effort & Inspection: normal respiratory effort Auscultation: clear to auscultation bilaterally, no crackles, no rales, no rhonchi, no wheezes and breath sounds present Cardio Rate: regular rate Rhythm: regular rhythm Peripheral pulses: radial pulses present and dorsalis pedis present GI Other: Pain to palpation of suprapubic area Inspection: Yes normal to inspection and No Abdominal wall edema Palpation (GI): Soft to palpation, not firm and nontender Auscultation: normal bowel sounds Rectal Exam - Female: deferred General: Yes no CVA tenderness Back/Spine/Pelvis Other: Pain to palpation of lateral aspect of right hip Back: no CVA tenderness Skin General skin exam: no rashes or lesions noted Neuro General: patient oriented x3 Cranial nerves: Yes Equal, round and reactive pupils present, Yes Midline tongue present, Yes Ability to bilaterally elevate shoulders present and No Nystagmus present Gait exam (Neuro): Normal gait present Extrem General: Yes normal to inspection, Yes full ROM, No no pedal edema and No edema Psych Speech and movement: Normal speech and movement present Affect: normal affect Insight: Good insight present (Psych) Judgement: Good judgement present (Psych) Results AMB Urinalysis Dipstick UR Leukocytes Negative Last Edit by DARYL Gardner on 08/10/24 14:26 UR Nitrite Negative Last Edit by DARYL Gardner on 08/10/24 14:26 UR Urobilinogen 2 Last Edit by DARYL Gardner on 08/10/24 14:26 UR Protein Negative Last Edit by DARYL Gardner on 08/10/24 14:26 UR Ph 6.0 Last Edit by DARYL Gardner on 08/10/24 14:26 UR Blood Negative Last Edit by DARYL Gardner on 08/10/24 14:26 UR Specific Rodman 1.015 Last Edit by DARYL Gardner on 08/10/24 14:26 UR Ketone Negative Last Edit by DARYL Gardner on 08/10/24 14:26 UR Bilirubin Negative Last Edit by DARYL Gardner on 08/10/24 14:26 UR Glucose Negative Last Edit by DARYL Gardner on 08/10/24 14:26 Coding Level of Care Code Est Pt Level 3 (59432) Est Pt Prev Care >65y(59187) Diagnoses Anxiety F41.9 Hypercholesteremia E78.00 GERD (gastroesophageal reflux disease) K21.9 Hypertension I10 Facial lesion L98.9 Annual physical exam Z00.00 Osteoarthritis of knees, bilateral M17.0 Systolic murmur R01.1 Right hip pain M25.551 Vaginal discharge N89.8 Additional Codes HONORIO-7 Assessment Billing - HONORIO-7 Assessment Tool: HONORIO-7 Assessment 38390 ([id number]) Vital Signs *Quality* - Advance Care Planning discussion: Completed/Scanned ([id number]) Vital Signs *Quality* - Time spent: 1-15 minutes, not on file ([id number]) Assessment & Plan Assessment & Plan (1) Anxiety: Code(s): F41.9 - Anxiety disorder, unspecified Category: Medical Plan: Not currently on medication and declines medication at this time referral placed for counseling at last visit. (2) Hypercholesteremia: Code(s): E78.00 - Pure hypercholesterolemia, unspecified Category: Medical Plan: Avoid foods that are high in cholesterol such as red meat, fried foods, eggs and baked goods. Triglyceride goal of less than 150 and LDL goal of less than 130. Continue on atorvastatin 40mg. cholesterol at goal on last labs. (3) GERD (gastroesophageal reflux disease): Code(s): K21.9 - Gastro-esophageal reflux disease without esophagitis Category: Medical Plan: Avoid trigger foods such as citrus, tomato products, soda, caffeine, spicy foods and other foods that may be irritating to your stomach. Avoid laying flat 3-4 hours after eating and elevate the head of the bed 30 degrees to prevent acid from moving into the esophagus. Continue on omeprazole (4) Hypertension: Code(s): I10 - Essential (primary) hypertension Category: Medical Plan: Continue on current blood pressure medication. Avoid salt intake and encourage healthy diet and regular exercise. (5) Facial lesion: Code(s): L98.9 - Disorder of the skin and subcutaneous tissue, unspecified Category: Medical Plan: Continue to follow up with Dermatology. (6) Annual physical exam: Code(s): Z00.00 - Encounter for general adult medical examination without abnormal findings Category: Medical Plan: Patient is up to date on all recommended routine screenings for her age and blood work is updated. Referral for bone density placed today. (7) Osteoarthritis of knees, bilateral: Code(s): M17.0 - Bilateral primary osteoarthritis of knee Category: Medical Plan: bilateral knee XR showed mild arthritis. Referral placed for orthopedics for possible injections. (8) Systolic murmur: Code(s): R01.1 - Cardiac murmur, unspecified Category: Medical Plan: Systolic murmur heard on exam patient denies any symptoms. Continue to monitor. (9) Right hip pain: Code(s): M25.551 - Pain in right hip Category: Medical Plan: Patient having right hip pain after a slip and fall. Patient denies headstrike or LOC. Ordered for hip XR for further evaluation. (10) Vaginal discharge: Code(s): N89.8 - Other specified noninflammatory disorders of vagina Category: Medical Plan: Patient c/o foul smelling milky discharge for the last several days and some vaginal itching as well. Ordered for yeast/bv panel as well as urinalysis for further evaluation. Plan This note was constructed using voice recognition software. While every effort has been made to ensure accuracy and bridge maintenance worker, still areas may have been included sometimes these areas may affect the content or meeting of the given symptoms. Total time spent caring for the patient today was 30 minutes. This includes time spent before the visit reviewing the chart, time spent during the visit, and time spent after the visit and documentation. Orders: Orders UA CC w/rflx Micro + Cult Today R35.89 - Other polyuria AMB Urinalysis Dipstick Today Z13.9 - Encounter for screening, unspecified XR hip RT min 2V Today M25.551 - Pain in right hip XR DEXA axial skeleton Today Z78.0 - Asymptomatic menopausal state Bacterial Vaginosis Panel Today N89.8 - Other specified noninflammatory disorders of vagina Referrals Orthopedics Referral M17.0 - Bilateral primary osteoarthritis of knee Gastroenterology Referral Z12.11 - Encounter for screening for malignant neoplasm of colon Medications: New omeprazole 40 mg PO DAILY 30 caps 2RF docusate sodium (Colace) 100 mg PO DAILY 30 caps 2RF Refilled amlodipine 5 mg PO DAILY 90 tabs 2RF atorvastatin 40 mg PO DAILY 90 tabs 2RF cholecalciferol (vitamin D3) 25 mcg PO DAILY 90 caps 3RF cyanocobalamin (vitamin B-12) 1,000 mcg PO DAILY 90 tabs 1RF
== END 2024-08-10 14:23 | disposition home or self-care (01) ==
LOC: HO.HMCH 13:16
DX: Z00.00 Encounter for general adult medical examination without abnormal findings (principal); F41.9 Anxiety disorder, unspecified; E78.00 Pure hypercholesterolemia, unspecified; K21.9 Gastro-esophageal reflux disease without esophagitis; I10 Essential (primary) hypertension; L98.9 Disorder of the skin and subcutaneous tissue, unspecified; M17.0 Bilateral primary osteoarthritis of knee; R01.1 Cardiac murmur, unspecified; M25.551 Pain in right hip; N89.8 Other specified noninflammatory disorders of vagina

== ENCOUNTER 2024-08-18 12:16 | Outpatient (REF) | payer MEDICARE, SELFPAY ==
--- NOTE | ~2024-08-18 | XR_ITS ---
EXAMINATION: XR HIP, RIGHT CLINICAL INFORMATION: Hip pain COMPARISON: X-ray 02/28/2009 TECHNIQUE: Two views of the right hip. FINDINGS: No acute fracture or dislocation is seen. Hip joint space is relatively maintained. Visualized portion of the pelvis appears intact. Mild symphysis pubis degeneration. No abnormal soft tissue calcification. XR/XR hip RT min 2V IMPRESSION: No radiographically evident acute fracture or dislocation. Electronically signed by: Alf Culp MD 08/18/2024 05:03 PM [facility]ANES[facility] ESPINOSA
== END 2024-08-18 12:17 | disposition home or self-care (01) ==
LOC: HO.XRAY 12:16
DX: M25.551 Pain in right hip (principal)
CPT/HCPCS: 73502

== ENCOUNTER 2024-12-03 14:13 | Outpatient (AMB) | payer MEDICARE, SELFPAY ==
--- NOTE | 2024-12-03 14:30 | A.OFFPC_ITS ---
Vital Signs 12/03/24 14:32 Height 5 ft 3 in Weight 151 lb 2 oz BMI 26.8 BP 110/60 Blood Pressure Location Lt brachial Position Sitting Pulse 85 Pulse Source Pulse Oximeter Temp 97.3 F Temp Source Temporal Artery Scan Pulse Oximetry (%) 96 Oxygen Delivery Method Room Air Intake Visit Reasons: follow up Intake Note: Patient is here to follow up on [symptoms]. Child Psychology Teacher Required: Yes Child Psychology Teacher Language: Ornament Setter Name: Frances (daughter) Information Interpreted: non-clinical & clinical (pt decline tariff compiling clerk service prefer daughter to translate.) Machine Molder: Present Accompanied by: Daughter Allergies No Known Allergies Allergy (Mild, Verified 12/03/24 14:31) NONE Medication List - Last Reconciled 12/03/24 by Ingrid Ramirez PA-C amlodipine 5 mg PO DAILY atorvastatin 40 mg PO DAILY cholecalciferol (vitamin D3) 25 mcg PO DAILY cyanocobalamin (vitamin B-12) 1,000 mcg PO DAILY diclofenac sodium 1% (Voltaren Arthritis Pain) 2 grams topical QID PRN docusate sodium (Colace) 100 mg PO DAILY omeprazole 40 mg PO DAILY Tobacco use date assessed: 12/03/24 Fall risk assessment: No Falls in past year Last assessed Fall Risk: 12/03/24 Dental Screening Dental Screen Date: 12/03/24 Did you have a dental visit in the last 12 months?: No Did you have a dental problem in the last 6 months where you did not have access to dental care?: No Was dental information given to patient?: No HPI follow up HPI Details 79-year-old female with past medical his tory of hypertension, GERD, hypercholesterolemia last seen 07/2024 coming in for follow up. Presenting with various chronic issues including yellowing of nails and occipital pain. Difficulty accessing dermatologic care for nail yellowing due to insurance coverage; possible link to vitamin deficiencies. Knee pain associated with weather changes; suggests worsening of arthritis symptoms. Partial relief when not outdoors in cold weather. Reported GERD symptoms, commonly experienced during nighttime, previously managed with omeprazole without full resolution. Dietary habits potentially contributing factor. [facility] Medical History Gallstones Hypertension Surgical History No pertinent past surgical history Family History Other Cancer Social History Housing: Apartment Alcohol intake: never Patient Tobacco Use Status: Never used Tobacco e-Cigarette/Vaping Use: Never Used Second Hand Smoke Exposure: No service: No Current occupational status: disabled Cognitive needs: Yes (Cane) Hearing needs: No Vision needs: No Questionnaire PHQ-9 Over the last 2 weeks, how often have you been bothered by any of the following problems? 1. Little interest or pleasure in doing things: not at all 2. Feeling down, depressed, or hopeless: not at all 3. Trouble falling or staying asleep, or sleeping too much: not at all 4. Feeling tired or having little energy: not at all 5. Poor appetite or overeating: not at all 6. Feeling bad about yourself - or that you are a failure or have let yourself or your family down: not at all 7. Trouble concentrating on things, such as reading the newspaper or watching television: not at all 8. Moving or speaking so slowly that other people could have noticed. Or the opposite - being so fidgety or restless that you have been moving around a lot more than usual: not at all 9. Thoughts that you would be better off or of hurting yourself in some way: not at all Total score: 0 Depression Screening Interpretation: Negative Depression Screening Done: Yes Source: Developed by Drs. Jackson Ford, Lacie Claros, eJ Aparicio and colleagues, with an educational devon from [employer]. Thrive Questionnaire Date Thrive assessed: 12/03/24 AUDIT C Alcohol Use Questionnaire (AUDIT-C) 1. How often do you have a drink containing alcohol?: Never Total Score: 0 HONORIO-7 AMB Questionnaire HONORIO-7 Date HONORIO - 7 assessed: 12/03/24 Feeling nervous, anxious, or on edge: 0 = Not at all Not being able to stop or control worryin = Not at all Worrying too much about different things: 0 = Not at all Trouble relaxin = Not at all Being so restless that it is hard to sit still: 0 = Not at all Becoming easily annoyed or irritable: 0 = Not at all Feeling afraid as if something awful might happen: 0 = Not at all Total HONORIO-7 score (0-4 normal; 5-9 mild; 10-14 moderate; 15-21 severe): 0 Source: Developed by Drs. Jackson Ford, Lacie Claros, Je Aparicio and colleagues, with an educational devon from [employer]. Review of Systems Const Denies body aches, Denies chills, Denies fever(s), Denies headache(s) and Denies poor appetite Eyes Reports no additional complaints ENT Denies dizziness, Denies headache(s) and Denies odynophagia Card Denies chest pain, Denies lightheadedness and Denies dyspnea Resp Denies cough and Denies dyspnea GI Reports no additional complaints, Reports dyspepsia, Reports heartburn, Denies nausea, Denies odynophagia and Denies vomiting Reports no additional complaints Musc Reports as per HPI and Denies abnormal gait Skin/Breast Reports system reviewed and no additional complaints, except as documented Neuro Denies abnormal gait, Denies dizziness and Denies headache(s) Psych Reports no additional complaints Physical exam (Primary Care) Vital Signs: Last Vital Signs Temp 97.3 F 12/03/24 14:32 Oxygen Delivery Method Room Air 12/03/24 14:32 BMI result Body Mass Index 26.8 Tobacco/Smoking Status: Tobacco use Status Tobacco use date assessed 08/10/24 08/10/24 13:25 Patient Tobacco Use Status Never used Tobacco 08/10/24 13:20 e-Cigarette/Vaping Use Never Used 08/10/24 13:20 Depression Screening Interpretation: Negative Thrive Assessment: Date of Thrive Assessment Date Thrive assessed 12/03/24 12/03/24 14:14 Const General: cooperative, healthy appearing, comfortable and no acute distress Orientation/consciousness: patient oriented x3 HENMT Head: Yes normocephalic Ears: hearing grossly normal bilaterally General nose exam: Normal external nose present Eyes General: appearance normal, both eyes and all related structures Conjunctivae: conjunctivae normal Neck Neck: Yes full ROM and Yes no lymphadenopathy Resp Effort & Inspection: normal respiratory effort Auscultation: clear to auscultation bilaterally, no crackles, no rales, no rhonchi and no wheezes Cardio Rate: regular rate Rhythm: regular rhythm Skin General skin exam: no rashes or lesions noted Neuro General: patient oriented x3 Gait exam (Neuro): Normal gait present Extrem General: Yes normal to inspection, Yes full ROM and No edema Psych Affect: normal affect Attitude: cooperative Insight: Good insight present (Psych) Judgement: Good judgement present (Psych) Coding Level of Care Code Est Pt Level 3 (92291) Diagnoses Hypertension I10 GERD (gastroesophageal reflux disease) K21.9 Hypercholesteremia E78.00 Anxiety F41.9 B12 deficiency E53.8 Vitamin D deficiency E55.9 Bilateral hand pain M79.641; M79.642 Assessment & Plan Assessment & Plan (1) Hypertension: Code(s): I10 - Essential (primary) hypertension Category: Medical Plan: Continue on current blood pressure medication. Avoid salt intake and encourage healthy diet and regular exercise. (2) GERD (gastroesophageal reflux disease): Code(s): K21.9 - Gastro-esophageal reflux disease without esophagitis Category: Medical Plan: Avoid trigger foods such as citrus, tomato products, soda, caffeine, spicy foods and other foods that may be irritating to your stomach. Avoid laying flat 3-4 hours after eating and elevate the head of the bed 30 degrees to prevent acid from moving into the esophagus. She has been taking omeprazole 40 mg and does not feel relief at nighttime still complaining of worsening reflux symptoms at night. Plan to change to pantoprazole 40 mg and avoid eating late at night. (3) Hypercholesteremia: Code(s): E78.00 - Pure hypercholesterolemia, unspecified Category: Medical Plan: Avoid foods that are high in cholesterol such as red meat, fried foods, eggs and baked goods. Triglyceride goal of less than 150 and LDL goal of less than 100. Continue on atorvastatin 40 (4) Anxiety: Code(s): F41.9 - Anxiety disorder, unspecified Category: Medical Plan: Declines need for intervention at this time. (5) B12 deficiency: Code(s): E53.8 - Deficiency of other specified B group vitamins Category: Medical Plan: Has been taking vitamin-B12 supplement plan to order repeat labs (6) Vitamin D deficiency: Code(s): E55.9 - Vitamin D deficiency, unspecified Category: Medical Plan: Has been taking vitamin-d supplement plan to order repeat labs (7) Bilateral hand pain: Code(s): M79.641 - Pain in right hand; M79.642 - Pain in left hand Category: Medical Plan: Patient complaining ?locking? sensation in bilateral hands with pain recommending referral to Orthopedics. Plan This note was constructed using voice recognition software. While every effort has been made to ensure accuracy and account services associate, still areas may have been included sometimes these areas may affect the content or meeting of the given symptoms. Total time spent caring for the patient today was 20 minutes. This includes time spent before the visit reviewing the chart, time spent during the visit, and time spent after the visit and documentation. Orders: Orders Lipid Panel Today E78.00 - Pure hypercholesterolemia, unspecified Vitamin B12 and Folate Today E53.8 - Deficiency of other specified B group vitamins Vitamin D 25-OH Total Today E53.8 - Deficiency of other specified B group vitamins, E55.9 - Vitamin D deficiency, unspecified Medications: New pantoprazole 40 mg PO DAILY 90 tabs 2RF Refilled amlodipine 5 mg PO DAILY 90 tabs 2RF atorvastatin 40 mg PO DAILY 90 tabs 2RF Discontinued omeprazole Discontinued Reason: Patient no longer taking 40 mg PO DAILY 30 caps 2RF
[2024-12-03 14:32] VITALS: BP 110/60; PULSE 85; TEMP 36.3; O2SAT 96; BMI 26.8
== END 2024-12-03 15:28 | disposition home or self-care (01) ==
DX: I10 Essential (primary) hypertension (principal); K21.9 Gastro-esophageal reflux disease without esophagitis; E78.00 Pure hypercholesterolemia, unspecified; F41.9 Anxiety disorder, unspecified; E53.8 Deficiency of other specified B group vitamins; E55.9 Vitamin D deficiency, unspecified; M79.641 Pain in right hand; M79.642 Pain in left hand

== ENCOUNTER → 2024-12-03 14:13 | Outpatient (BNVA) | payer MEDICARE, SELFPAY | DX: I10 Essential (primary) hypertension (principal); K21.9 Gastro-esophageal reflux disease without esophagitis; E78.00 Pure hypercholesterolemia, unspecified; F41.9 Anxiety disorder, unspecified; E53.8 Deficiency of other specified B group vitamins; E55.9 Vitamin D deficiency, unspecified; M79.641 Pain in right hand; M79.642 Pain in left hand | CPT/HCPCS: 99212 ==

== ENCOUNTER 2025-02-07 13:13 | Outpatient (AMB) | payer MEDICARE, SELFPAY ==
[2025-02-07 13:25] VITALS: BMI 26.7
--- NOTE | 2025-02-07 13:25 | A.OFFVIS_ITS ---
Vital Signs 02/07/25 13:25 Height 5 ft 3 in Weight 151 lb BMI 26.7 Intake Visit Reasons: YARD JOCKEY-B/L hand pain/locking sensation Intake Note: Brianna is a 79 year old right hand dominant female who presents today with her daughter Frances, as a new patient for bilateral hand pain and digit locking. States both hands are as bad, states she has cramps on her hands that comes and goes a few times a week. Its worse in the night time, wakes her up at night. Also mentioned she has left elbow and shoulder pain. Denies injury, numbness, tingling or locking of any finger. Accompanied by: Daughter Allergies No Known Allergies Allergy (Mild, Verified 12/03/24 14:31) NONE HPI HPI YARD JOCKEY-B/L hand pain/locking sensation: Details: Brianna is a 79 year old right hand dominant female who presents today with her daughter Frances, as a new patient for bilateral hand pain and digit locking. States both hands are as bad, states she has cramps on her hands that comes and goes a few times a week. Its worse in the night time, wakes her up at night. Also mentioned she has left elbow and shoulder pain. Denies injury, numbness, tingling or locking of any finger. [facility] Medical History Gallstones Hypertension Surgical History No pertinent past surgical history Family History Other Cancer Social History Housing: Apartment Alcohol intake: never Patient Tobacco Use Status: Never used Tobacco e-Cigarette/Vaping Use: Never Used Second Hand Smoke Exposure: No service: No Current occupational status: disabled Cognitive needs: Yes (Cane) Hearing needs: No Vision needs: No Review of Systems Const All systems reviewed & are unremarkable except as noted in HPI and below Physical Exam Vital Signs: BMI result Body Mass Index 26.7 Extrem Other: Patient is alert, oriented, and in no acute distress. Neuro: Normal sensation of the tips of all digits of the bilateral hand at this time Vascular: Cap refill brisk Pain: Some discomfort with making a closed fist ROM: Patient was able to make a closed fist and extend all digits of the bilateral hands fully Skin: No lacerations or abrasions. General: No ecchymosis, erythema, or evidence of infection. Psych: Appears grossly normal Affect normal Attitude cooperative Assessment & Plan Assessment & Plan (1) Bilateral hand pain: Code(s): M79.641 - Pain in right hand; M79.642 - Pain in left hand Category: Medical (2) Cramping of hands: Code(s): R25.2 - Cramp and spasm Category: Medical Plan 1. Cramping and pain of bilateral hands Patient is educated about this condition Patient is educated about the typical treatment course At this time, patient was referred to OT for range of motion and strengthening of bilateral hands Patient is also educated on conservative pain management measures Patient was amenable to this plan Follow-up as needed Orders: Orders OT Evaluation and Treatment Today M79.641 - Pain in right hand, M79.642 - Pain in left hand, R25.2 - Cramp and spasm Coding Level of Care Code New Pt Level 3 (98751) Diagnoses Bilateral hand pain M79.641; M79.642 Cramping of hands R25.2
== END 2025-02-07 13:46 | disposition home or self-care (01) ==
LOC: HO.HOS 13:14
DX: M79.641 Pain in right hand (principal); M79.642 Pain in left hand; M25.512 Pain in left shoulder; M25.022 Hemarthrosis, left elbow
CPT/HCPCS: 99203

== ENCOUNTER → 2025-02-07 13:13 | Outpatient (BNVA) | payer MEDICARE, SELFPAY | DX: M79.641 Pain in right hand (principal); M79.642 Pain in left hand; R25.2 Cramp and spasm | CPT/HCPCS: 99202 ==

== ENCOUNTER 2025-02-08 13:14 | Outpatient (REF) | payer MEDICARE, SELFPAY | END 2025-02-08 13:15 | disposition home or self-care (01) | LOC: HO.LAB 13:14 | DX: R30.0 Dysuria (principal); R25.2 Cramp and spasm; F41.9 Anxiety disorder, unspecified; E78.00 Pure hypercholesterolemia, unspecified; K21.9 Gastro-esophageal reflux disease without esophagitis; I10 Essential (primary) hypertension | CPT/HCPCS: 81002; 87086; 96127; 99212 ==

== ENCOUNTER 2025-02-08 13:14 | Outpatient (AMB) | payer MEDICARE, SELFPAY ==
--- NOTE | 2025-02-08 13:27 | MHC.PC.OV ---
Vital Signs 02/08/25 13:28 Height 5 ft 3 in Weight 148 lb 2 oz BMI 26.2 BP 120/68 Blood Pressure Location Lt brachial Position Sitting Pulse 76 Pulse Source Pulse Oximeter Temp 97.3 F Temp Source Temporal Artery Scan Pulse Oximetry (%) 98 Oxygen Delivery Method Room Air Intake Visit Reasons: Follow Up Intake Note: Patient is here to follow up on HTN, Hypercholesteremia, GERD. Grocery Carrier Required: Yes Grocery Carrier Language: Muck Hauler Name: Frances (Daughter) Information Interpreted: non-clinical & clinical (pt decline delivery rn service prefer daughter to translate) Cemetery Vault Installer: Present Accompanied by: Daughter Allergies No Known Allergies Allergy (Mild, Verified 02/08/25 13:36) NONE Medication List - Last Reconciled 02/08/25 by Ingrid Ramirez PA-C amlodipine 5 mg PO DAILY atorvastatin 40 mg PO DAILY cholecalciferol (vitamin D3) 25 mcg PO DAILY cyanocobalamin (vitamin B-12) 1,000 mcg PO DAILY diclofenac sodium 1% (Voltaren Arthritis Pain) 2 grams topical QID PRN docusate sodium (Colace) 100 mg PO DAILY pantoprazole 40 mg PO DAILY Tobacco use date assessed: 02/08/25 Fall risk assessment: No Falls in past year Last assessed Fall Risk: 02/08/25 Dental Screening Dental Screen Date: 12/03/24 HPI Follow Up HPI Details 79 year old female with past medical history of HTN, GERD, hypercholesterolemia last seen 11/2024 coming in for follow up. In review of the notes, patient was seen by ortho 01/2025 for hand pain and locking sensation referred for OT for ROM exercises.? Presenting with follow-up for recent and ongoing medical issues including vitamin deficiencies, depression, anxiety, hand pain, and urinary symptoms. Modifications have been made in the management of gastroesophageal reflux disease (GERD) with a shift from omeprazole to pantoprazole, which has provided symptom relief. Reports of hand pain have led to a referral for occupational therapy, with an appointment scheduled on February 16. The patient describes experiencing warm or hot urination that began approximately a week ago, with no accompanying fever or new low back pain. A historical urinary tract infection was reported two years ago. [facility] Medical History Gallstones Hypertension Surgical History No pertinent past surgical history Family History Other Cancer Social History Housing: Apartment Alcohol intake: never Patient Tobacco Use Status: Never used Tobacco e-Cigarette/Vaping Use: Never Used Second Hand Smoke Exposure: No service: No Current occupational status: disabled Cognitive needs: Yes (Cane) Hearing needs: No Vision needs: No Questionnaire PHQ-9 Over the last 2 weeks, how often have you been bothered by any of the following problems? 1. Little interest or pleasure in doing things: not at all 2. Feeling down, depressed, or hopeless: several days 3. Trouble falling or staying asleep, or sleeping too much: nearly every day 4. Feeling tired or having little energy: more than half the days 5. Poor appetite or overeating: not at all 6. Feeling bad about yourself - or that you are a failure or have let yourself or your family down: not at all 7. Trouble concentrating on things, such as reading the newspaper or watching television: not at all 8. Moving or speaking so slowly that other people could have noticed. Or the opposite - being so fidgety or restless that you have been moving around a lot more than usual: not at all 9. Thoughts that you would be better off or of hurting yourself in some way: not at all Total score: 6 Depression Screening Interpretation: Positive Depression Screening Follow-up: Declines treatment Depression Screening Done: Yes Source: Developed by Drs. Jackson Ford, Lacie Claros, Je Aparicio and colleagues, with an educational devon from [employer]. Thrive Questionnaire Date Thrive assessed: 12/03/24 I am a: Patient What is your living situation today?: I have a steady place to live Within the past 12 months, did the food you bought not last and you didn't have the money to get more?: I choose not to answer this question Within the past 12 months, did you worry whether your food would run out before you got money to buy more?: I choose not to answer this question Do you have trouble paying for medicines?: No Do you have trouble getting transportation to medical appointments?: Yes Do you have trouble paying your heating and electricity bill?: I choose not to answer this question Do you have trouble taking care of your child, family member or friend?: No Do you have trouble with day-to-day activities such as bathing, preparing meals, shopping, managing finances, etc.?: Yes Are you currently unemployed and looking for a job?: No Are you interested in more education?: No Please select the resources that you would like help with: None Currently or been in a relationship where the following occur: No concerns reported THRIVE Score: 1 AUDIT C Alcohol Use Questionnaire (AUDIT-C) 1. How often do you have a drink containing alcohol?: Never Total Score: 0 HONORIO-7 AMB Questionnaire HONORIO-7 Date HONORIO - 7 assessed: 02/08/25 Feeling nervous, anxious, or on edge: 1 = Several days Not being able to stop or control worryin = Several days Worrying too much about different things: 1 = Several days Trouble relaxin = Several days Being so restless that it is hard to sit still: 1 = Several days Becoming easily annoyed or irritable: 0 = Not at all Feeling afraid as if something awful might happen: 1 = Several days Total HONORIO-7 score (0-4 normal; 5-9 mild; 10-14 moderate; 15-21 severe): 6 Source: Developed by Drs. Jackson Ford, Lacie Claros, Je Aparicio and colleagues, with an educational devon from [employer]. Review of Systems Const Denies body aches, Denies chills, Denies fever(s), Denies poor appetite and Reports weight loss (5 lb over the last 6 months) Eyes Reports no additional complaints ENT Denies dizziness Card Denies chest pain, Denies lightheadedness and Denies dyspnea Resp Denies dyspnea GI Reports abdominal pain (LLQ and suprapubic), Denies nausea and Denies vomiting Reports dysuria Musc Reports no additional complaints and Denies abnormal gait Skin/Breast Reports system reviewed and no additional complaints, except as documented Neuro Denies abnormal gait and Denies dizziness Psych Reports no additional complaints Physical exam (Primary Care) Vital Signs: Last Vital Signs Temp 97.3 F 02/08/25 13:28 Pulse 76 02/08/25 13:28 BP 120/68 02/08/25 13:28 Pulse Ox 98 02/08/25 13:28 Oxygen Delivery Method Room Air 02/08/25 13:28 BMI result Body Mass Index 26.2 Tobacco/Smoking Status: Tobacco use Status Tobacco use date assessed 02/08/25 02/08/25 13:33 Patient Tobacco Use Status Never used Tobacco 02/08/25 13:33 e-Cigarette/Vaping Use Never Used 02/08/25 13:33 PHQ-9: PHQ-9 Score PHQ-9: Total score 6 02/08/25 14:10 Depression Screening Interpretation: Positive Depression Screening Follow-up: Declines treatment Thrive Assessment: Date of Thrive Assessment Date Thrive assessed 12/03/24 02/08/25 13:33 Currently or been in a relationship where the following occur: No concerns reported Const General: cooperative, healthy appearing, comfortable and no acute distress Orientation/consciousness: patient oriented x3 HENMT Head: Yes normocephalic Ears: hearing grossly normal bilaterally General nose exam: Normal external nose present Eyes General: appearance normal, both eyes and all related structures Conjunctivae: conjunctivae normal Neck Neck: Yes full ROM and Yes no lymphadenopathy Resp Effort & Inspection: normal respiratory effort Auscultation: clear to auscultation bilaterally, no crackles, no rales, no rhonchi and no wheezes Cardio Rate: regular rate Rhythm: regular rhythm GI Palpation (GI): Soft to palpation, not firm, Tenderness to palpation present (GI) in the LLQ and suprapubicly, no guarding and not rigid General: Yes no CVA tenderness Back/Spine/Pelvis Back: no CVA tenderness Skin General skin exam: no rashes or lesions noted Neuro General: patient oriented x3 Gait exam (Neuro): Normal gait present Extrem General: Yes normal to inspection, Yes full ROM and No edema Psych Affect: normal affect Attitude: cooperative Insight: Good insight present (Psych) Judgement: Good judgement present (Psych) Results AMB Urinalysis Dipstick UR Leukocytes Negative Last Edit by Micaela Gonsales CMA on 02/08/25 14:10 UR Nitrite Negative Last Edit by Micaela Gonsales CMA on 02/08/25 14:10 UR Urobilinogen Normal Last Edit by Micaela Gonsales, AMADEO on 02/08/25 14:10 UR Protein Negative Last Edit by Micaela Gonsales, CUSTOMER ADVISOR SPECIALIST on 02/08/25 14:10 UR Ph 6.0 Last Edit by Micaela Gonsales, CUSTOMER ADVISOR SPECIALIST on 02/08/25 14:10 UR Blood Negative Last Edit by Micaela Gonsales, CUSTOMER ADVISOR SPECIALIST on 02/08/25 14:10 UR Specific [place] 1.020 Last Edit by Micaela Gonsales, CUSTOMER ADVISOR SPECIALIST on 02/08/25 14:10 UR Ketone Negative Last Edit by Micaela Gonsales, CUSTOMER ADVISOR SPECIALIST on 02/08/25 14:10 UR Bilirubin Negative Last Edit by Micaela Gonsales, CUSTOMER ADVISOR SPECIALIST on 02/08/25 14:10 UR Glucose Negative Last Edit by Micaela Gonsales, CUSTOMER ADVISOR SPECIALIST on 02/08/25 14:10 Results Reviewed Results Reviewed: Laboratory Last Values Urine pH (Clinic) 6.0 02/08/25 14:09 Specific [place] (Clinic) 1.020 02/08/25 14:09 Ur Protein (Clinic) Negative 02/08/25 14:09 Ur Ketones (Clinic) Negative 02/08/25 14:09 Urine Blood (Clinic) Negative 02/08/25 14:09 Urine Nitrite Negative 02/08/25 14:09 Urine Bilirubin (Clinic) Negative 02/08/25 14:09 Urobilinogen (Clinic) Normal 02/08/25 14:09 Leukocyte Esterase (Clinic) Negative 02/08/25 14:09 Urine Glucose (Clinic) Negative 02/08/25 14:09 Coding Level of Care Code Est Pt Level 3 (17727) Diagnoses Cramping of hands R25.2 Anxiety F41.9 Hypercholesteremia E78.00 GERD (gastroesophageal reflux disease) K21.9 Hypertension I10 Dysuria R30.0 Assessment & Plan Assessment & Plan (1) Cramping of hands: Code(s): R25.2 - Cramp and spasm Category: Medical Plan: Patient to start occupational therapy and continue to follow up as needed with Orthopedics (2) Anxiety: Code(s): F41.9 - Anxiety disorder, unspecified Category: Medical Plan: Declines need for intervention at this time. (3) Hypercholesteremia: Code(s): E78.00 - Pure hypercholesterolemia, unspecified Category: Medical Plan: Avoid foods that are high in cholesterol such as red meat, fried foods, eggs and baked goods. Triglyceride goal of less than 150 and LDL goal of less than 100. Continue on atorvastatin 40. Reminded patient about repeat blood work (4) GERD (gastroesophageal reflux disease): Code(s): K21.9 - Gastro-esophageal reflux disease without esophagitis Category: Medical Plan: Avoid trigger foods such as citrus, tomato products, soda, caffeine, spicy foods and other foods that may be irritating to your stomach. Avoid laying flat 3-4 hours after eating and elevate the head of the bed 30 degrees to prevent acid from moving into the esophagus. We changed omeprazole to pantoprazole at last visit and seeing better control of symptoms. (5) Hypertension: Code(s): I10 - Essential (primary) hypertension Category: Medical Plan: Continue on current blood pressure medication. Avoid salt intake and encourage healthy diet and regular exercise. (6) Dysuria: Code(s): R30.0 - Dysuria Category: Medical Plan: Urinalysis was obtained in the office today which was negative for acute infection. No leukocytes, nitrites or blood in the urine. Plan to obtain bacterial vaginosis swab for further evaluation and send urine culture. Advised patient to increase fluid intake. Plan This note was constructed using voice recognition software. While every effort has been made to ensure accuracy and vending machine refiller, still areas may have been included sometimes these areas may affect the content or meeting of the given symptoms. Total time spent caring for the patient today was 20 minutes. This includes time spent before the visit reviewing the chart, time spent during the visit, and time spent after the visit and documentation. Patient was informed and verbally consented to the use of an ambient scribe for clinic note documentation during this visit. Orders: Orders AMB Urinalysis Dipstick Today Z13.9 - Encounter for screening, unspecified Bacterial Vaginosis Panel Today R30.0 - Dysuria Urine Culture Today R30.0 - Dysuria Medications: Refilled cholecalciferol (vitamin D3) 25 mcg PO DAILY 90 caps 3RF cyanocobalamin (vitamin B-12) 1,000 mcg PO DAILY 90 tabs 1RF diclofenac sodium 1% (Voltaren Arthritis Pain) apply to bilateral knees 2 grams topical QID PRN 100 grams 0RF pain docusate sodium (Colace) 100 mg PO DAILY 30 caps 2RF
[2025-02-08 13:28] VITALS: BP 120/68; PULSE 76; TEMP 36.3; O2SAT 98; BMI 26.2
== END 2025-02-08 14:04 | disposition home or self-care (01) ==
LOC: HO.HMCH 13:15
DX: R25.2 Cramp and spasm (principal); F41.9 Anxiety disorder, unspecified; E78.00 Pure hypercholesterolemia, unspecified; K21.9 Gastro-esophageal reflux disease without esophagitis; I10 Essential (primary) hypertension; R30.0 Dysuria; Z13.9 Encounter for screening, unspecified

== ENCOUNTER 2025-03-02 09:06 | Outpatient (REF) | payer OTHER, SELFPAY ==
[2025-03-02 11:34] LABS: Cholesterol 144 mg/dL (<200); HDL Cholesterol 45 mg/dL (>40); LDL Cholesterol Calculated 89 mg/dL (<100); Triglycerides 54 mg/dL (<150)
[2025-03-02 12:07] LABS: Vitamin D 25-OH Total 40.1 ng/mL (>30)
[2025-03-02 12:08] LABS: Folate 11.4 ng/mL (> or = 4.0); Vitamin B12 318 pg/mL (200-900)
== END 2025-03-02 09:07 | disposition home or self-care (01) ==
LOC: HO.LAB 09:06
DX: E78.00 Pure hypercholesterolemia, unspecified (principal); E53.8 Deficiency of other specified B group vitamins; E55.9 Vitamin D deficiency, unspecified
CPT/HCPCS: 36415; 80061; 82306; 82607; 82746

== ENCOUNTER 2025-03-31 15:23 | Outpatient (REF) | payer OTHER, SELFPAY | END 2025-03-31 15:24 | disposition home or self-care (01) | LOC: HO.HOSX 15:23 | DX: Z13.89 Encounter for screening for other disorder (principal) ==

== ENCOUNTER 2025-04-01 08:39 | Outpatient (REF) | payer OTHER, SELFPAY | END 2025-04-01 08:40 | disposition home or self-care (01) | LOC: HO.HOSX 08:39 | DX: Z13.89 Encounter for screening for other disorder (principal) ==